=== PATIENT | female | born 1940 | race Caucasian/White ===

== ENCOUNTER 2016-10-19 12:32 | Inpatient (IN) | payer MEDICARE ==
[~2016-10-19] VITALS: Ht 165.1 cm; Wt 87.6 kg
[~2016-10-19 12:32] MED LIST: AMLO5TAB2 PO; INSU100V8 SQ; LOSA1TAB16 PO; METF500T25 PO; METO1TAB8 PO
[2016-10-19] MEDS ORDERED: IV NORMAL SALINE 1000ML BAG 1,000 ML IV SCH (13:06)
--- NOTE | 2016-10-19 13:09 | RAD ---
Head CT without contrast History:Code stroke, left-sided weakness Technique: Noncontrast CT imaging was acquired of the head. RS Compliance Statement: One or more of the following individualized dose reduction techniques were utilized for this examination: 1. Automated exposure control 2. Adjustment of the mA and/or kV according to patient size 3. Use of iterative reconstruction technique Comparison: None Findings: The ventricles, sulci, and cisterns are within normal limits in size and configuration. There is no significant mass-effect, midline shift, or abnormal extra-axial fluid collection. There is no evidence of acute parenchymal or extraaxial hemorrhage. The visualized paranasal sinuses and mastoid air cells are aerated. No significant osseous abnormality is identified. There is a focus of relative lower density of the right thalamus. Impression: There is no evidence of acute intracranial hemorrhage. There is a focus of somewhat lower density of the right thalamus, more recent ischemia not excluded. CT or MRI follow-up may be beneficial if concern for acute ischemia. Results were called to Dr. Epps 10/19/2016 at 1304.
[2016-10-19] MEDS ORDERED: ASPIRIN ENTERIC COATED 325 MG TABLET.DR. PO ONE (13:15)
[2016-10-19 13:16] LABS: BASO # 0.1 x10^3/uL (0.0-0.2); BASO % 1 % (0-3); EOS % 2 % (0-3); HEMATOCRIT 35.3 % (36.0-47.0); HEMOGLOBIN 11.2 g/dL (12.0-15.5); LYMPH # 1.8 x10^3/uL (1.0-4.8); LYMPH % 27 % (24-48); MEAN CORPUSCULAR HEMOGLOBIN 25 pg (25-35); MEAN CORPUSCULAR HGB CONC 32 g/dL (31-37); MEAN CORPUSCULAR VOLUME 81 fL (79-100); MONO % 12 % (0-9); NEUT % 58 % (31-73); PLATELET COUNT 217 x10^3/uL (140-400); RED BLOOD COUNT 4.39 x10^6/uL (3.50-5.40); RED CELL DISTRIBUTION WIDTH 14.8 % (11.5-14.5); WHITE BLOOD COUNT 6.7 x10^3/uL (4.0-11.0)
[2016-10-19 13:26] LABS: POTASSIUM ISTAT 3.9 mmol/L (3.5-5.0)
[2016-10-19 13:27] LABS: CALCIUM 9.2 mg/dL (8.5-10.1); CREATININE 0.9 mg/dL (0.6-1.0); GFR 61.2; POTASSIUM 3.9 mmol/L (3.5-5.1)
--- NOTE | 2016-10-19 13:28 | RAD ---
Single view chest History:Weakness An AP view of the chest is submitted. Comparison: 08/28/2012. Findings: There is no significant infiltrate, pleural effusion, or pneumothorax. The pericardial cardiac silhouette is within normal limits in size. There again has been a median sternotomy. Impression: No acute radiographic abnormality is identified.
[2016-10-19 13:33] LABS: ALBUMIN 3.5 g/dL (3.4-5.0); PROTHROMBIN TIME PATIENT 12.4 SEC (11.7-14.0); TOTAL BILIRUBIN 0.3 mg/dL (0.2-1.0); TOTAL PROTEIN 6.9 g/dL (6.4-8.2)
--- NOTE | 2016-10-19 13:39 | PHYS DOC ---
Past Medical History Past Medical History: Heart Disease, Hypertension Past Surgical History: Coronary Bypass Surgery Alcohol Use: None Drug Use: None Adult General Chief Complaint Chief Complaint: NEURO SYMPTOMS/DEFICITS HPI HPI Patient is a 76 year old female who presents with complaint of left-sided weakness and slurring of speech. Patient was brought to the emergency department by her . Both patient and state that the patient was complaining of double vision last night before bedtime. The patient awoke with both double vision and difficulty with keeping her balance earlier this morning. The patient stated that she wanted to visit her brother who is currently in a half-way which is why she didn't come in immediately. The patient's states that he noticed her symptoms were worsening at approximately 11:30 today with worsening slurring of speech and left-sided weakness. He brought the patient to the emergency department for evaluation. Patient denies any pain currently. Patient does admit to left-sided weakness. Patient denies any history of stroke. Patient has history of coronary artery disease and hypertension and is status post cardiac bypass surgery. Review of Systems Review of Systems Constitutional: Denies fever or chills [] Eyes: Denies change in visual acuity, redness, or eye pain [] HENT: Denies nasal congestion or sore throat [] Respiratory: Denies cough or shortness of breath [] Cardiovascular: Denies chest pain or edema [] GI: Denies abdominal pain, nausea, vomiting, bloody stools or diarrhea [] : Denies dysuria or hematuria [] Musculoskeletal: Denies back pain or joint pain [] Integument: Denies rash or skin lesions [] Neurologic: Slurred speech, double vision, left-sided weakness [] Current Medications Current Medications Current Medications Medications (Trade) Dose Ordered Sig/Burke Start Time Stop Time Status Last Admin Dose Admin Aspirin (Ecotrin) 325 mg 1X ONCE 10/19/16 13:15 10/19/16 13:16 DC Sodium Chloride (Iv Sodium Chloride 0.9% 1000ml Bag) 1,000 ml @ 1,000 mls/hr Q1H 10/19/16 13:06 10/19/16 14:05 Allergies Allergies Allergies Coded Allergies Type Severity Reaction Last Updated Verified No Known Drug Allergies 01/07/14 No Physical Exam Physical Exam Constitutional: Alert, afebrile, no acute distress. [] HENT: Normocephalic, atraumatic, bilateral external ears normal, oropharynx moist, no oral exudates, nose normal. [] Eyes: PERRLA, EOMI, conjunctiva normal, no discharge. [] Neck: Normal range of motion, no tenderness, supple, no stridor. [] Cardiovascular:Heart rate regular rhythm, no murmur [] Lungs & Thorax: Bilateral breath sounds clear to auscultation [] Abdomen: Bowel sounds normal, soft, no tenderness, no masses, no pulsatile masses. [] Skin: Warm, dry, no erythema, no rash. [] Back: No tenderness, no CVA tenderness. [] Extremities: No tenderness, no cyanosis, no clubbing, ROM intact, no edema. [] Neurologic: Alert and oriented X 3, left-sided facial droop, 4 out of 5 strength in the left upper and lower extremity, abnormal finger to nose test, positive pronator drift in left upper extremity. [] Current Patient Data Vital Signs Vital Signs Date Time Temp Pulse Resp B/P Pulse Ox O2 Delivery O2 Flow Rate FiO2 10/19/16 12:55 97.7 78 24 128/61 94 Room Air 97.7 Lab Values Laboratory Tests Test 10/19/16 13:00 10/19/16 13:07 White Blood Count 6.7x10^3/uL (4.0-11.0) Red Blood Count 4.39x10^6/uL (3.50-5.40) Hemoglobin 11.2g/dL (12.0-15.5) L Hematocrit 35.3% (36.0-47.0) L Mean Corpuscular Volume 81fL (79-100) Mean Corpuscular Hemoglobin 25pg (25-35) Mean Corpuscular Hemoglobin Concent 32g/dL (31-37) Red Cell Distribution Width 14.8% (11.5-14.5) H Platelet Count 217x10^3/uL (140-400) Neutrophils (%) (Auto) 58% (31-73) Lymphocytes (%) (Auto) 27% (24-48) Monocytes (%) (Auto) 12% (0-9) H Eosinophils (%) (Auto) 2% (0-3) Basophils (%) (Auto) 1% (0-3) Neutrophils # (Auto) 3.9x10^3uL (1.8-7.7) Lymphocytes # (Auto) 1.8x10^3/uL (1.0-4.8) Monocytes # (Auto) 0.8x10^3/uL (0.0-1.1) Eosinophils # (Auto) 0.1x10^3/uL (0.0-0.7) Basophils # (Auto) 0.1x10^3/uL (0.0-0.2) Prothrombin Time 12.4SEC (11.7-14.0) Prothrombin Time INR 1.0 (0.8-1.1) PTT 24SEC (24-38) Sodium Level 142mmol/L (136-145) Potassium Level 3.9mmol/L (3.5-5.1) Chloride Level 105mmol/L (98-107) Carbon Dioxide Level 30mmol/L (21-32) Anion Gap 7 (6-14) 16mmol/L (6-14) H Blood Urea Nitrogen 14mg/dL (7-20) Creatinine 0.9mg/dL (0.6-1.0) Estimated GFR (Cockcroft-Gault) 61.2 BUN/Creatinine Ratio 16 (6-20) Glucose Level 143mg/dL (70-99) H 140mg/dL (70-99) H Calcium Level 9.2mg/dL (8.5-10.1) Total Bilirubin 0.3mg/dL (0.2-1.0) Aspartate Amino Transferase (AST) 14U/L (15-37) L Alanine Aminotransferase (ALT) 19U/L (14-59) Alkaline Phosphatase 66U/L (46-116) Troponin I Quantitative < 0.017ng/mL (0.000-0.055) Total Protein 6.9g/dL (6.4-8.2) Albumin 3.5g/dL (3.4-5.0) Albumin/Globulin Ratio 1.0 (1.0-1.7) POC Hemoglobin 11.9g/dL (12-15) L POC Hematocrit 35% (36-40) L POC Sodium 140mmol/L (135-145) POC Potassium 3.9mmol/L (3.5-5.0) POC Chloride 101mmol/L (98-110) POC Total CO2 27mmol/L (23-32) POC Blood Urea Nitrogen 13mg/dL (8-26) POC Creatinine 0.8mg/dL (0.5-1.4) POC Ionized Calcium (Greg) 1.19mmol/L (1.13-1.32) POC Troponin I 0.00ng/ml (<0.08) Laboratory Tests 10/19/16 13:00 Laboratory Tests 10/19/16 13:00 10/19/16 13:07 EKG EKG Interpreted by me: Heart rate 78, sinus rhythm, normal intervals, normal axis, no acute ST/T-wave abnormalities present [] Radiology/Procedures Radiology/Procedures [address] [id number] IMAGING REPORT Signed PATIENT: DENZEL ARTIS ACCOUNT: [id number] : 1940 LOCATION: ER AGE: 76 SEX: F EXAM STATUS: PRE ER ORD. PHYSICIAN: HOSSEIN EPPS MD REASON: weakness, rule out acute cardiopulmonary abnormality PROCEDURE: CHEST AP ONLY Single view chest History:Weakness An AP view of the chest is submitted. Comparison: 08/28/2012. Findings: There is no significant infiltrate, pleural effusion, or pneumothorax. The pericardial cardiac silhouette is within normal limits in size. There again has been a median sternotomy. Impression: No acute radiographic abnormality is identified. DICTATED and SIGNED BY: ZANA SMITH MD DATE: 10/19/16 1325 CC: WILBUR PATEL; HOSSEIN EPPS MD ~ [address] [id number] IMAGING REPORT Signed PATIENT: DENZEL ARTIS ACCOUNT: [id number] : 1940 LOCATION: ER AGE: 76 SEX: F EXAM STATUS: PRE ER ORD. PHYSICIAN: HOSSEIN EPPS MD REASON: code stroke PROCEDURE: HEAD WO CONTRAST Head CT without contrast History:Code stroke, left-sided weakness Technique: Noncontrast CT imaging was acquired of the head. PQRS Compliance Statement: One or more of the following individualized dose reduction techniques were utilized for this examination: 1. Automated exposure control 2. Adjustment of the mA and/or kV according to patient size 3. Use of iterative reconstruction technique Comparison: None Findings: The ventricles, sulci, and cisterns are within normal limits in size and configuration. There is no significant mass-effect, midline shift, or abnormal extra-axial fluid collection. There is no evidence of acute parenchymal or extraaxial hemorrhage. The visualized paranasal sinuses and mastoid air cells are aerated. No significant osseous abnormality is identified. There is a focus of relative lower density of the right thalamus. Impression: There is no evidence of acute intracranial hemorrhage. There is a focus of somewhat lower density of the right thalamus, more recent ischemia not excluded. CT or MRI follow-up may be beneficial if concern for acute ischemia. Results were called to Dr. Epps 10/19/2016 at 1304. DICTATED and SIGNED BY: ZANA SMITH MD DATE: 10/19/16 1300 CC: WILBUR PATEL; HOSSEIN EPPS MD ~ [] Course & Med Decision Making Course & Med Decision Making Pertinent Labs and Imaging studies reviewed. (See chart for details) The patient's CT head shows a possible subacute area of stroke in the right thalmus as reported by the radiologist. The patient is out of the window for TPA administration as the patient's symptoms started last night with double vision. I consult that Dr. Canela of neurology who agreed with the assessment and agreed with plan for supportive care at this time. The patient will be admitted to the hospital for further treatment. I spoke with Dr. Lora who is on-call for Dr. Patel and he accepted care of patient in hospital. Dragon Disclaimer Dragon Disclaimer This electronic medical record was generated, in whole or in part, using a voice recognition dictation system. Departure Departure Impression: Primary Impression: CVA (cerebral vascular accident) Disposition: 01 HOME, SELF-CARE Admitting Physician: Angel Lora Condition: GUARDED Referrals: WILBUR PATEL (PCP) Problem Qualifiers Primary Impression: CVA (cerebral vascular accident) CVA mechanism: unspecified Qualified Code: I63.9 - Cerebral infarction, unspecified HOSSEIN EPPS MD Oct 19, 2016 13:39
[2016-10-19 14:02] LABS: BILIRUBIN,URINE NEGATIVE (NEG); GLUCOSE,URINE NEGATIVE (NEG); NITRITE,URINE NEGATIVE (NEG); PH,URINE 5.5; PROTEIN,URINE NEGATIVE (NEG-TRACE); UROBILINOGEN,URINE 0.2 mg/dL (0.2 mg/dL)
--- NOTE | 2016-10-19 14:04 | PDOC ---
Provider Note Provider Note Patient seen. History and Physical dictated. See dictation #[id number] VERONIKA TAI MD Oct 19, 2016 14:04
[2016-10-19] MEDS ORDERED: ACETAMINOPHEN 325 MG TABLET. PO PRN (14:15)
[2016-10-19 14:21] LABS: BACTERIA,URINE 0 /HPF (0-FEW); RBC,URINE 0 /HPF (0-2); SQUAMOUS EPITHELIAL CELL,UR FEW /LPF; WBC,URINE 0 /HPF (0-4)
--- NOTE | 2016-10-19 16:01 | ACF ---
Admission Forms Criteria TRAUMATIC BRAIN INJURY, NONSURGICAL TREATMENT Clinical Indications for Admission to Inpatient Care (Place 'X' for any and all applicable criteria): Admission is indicated for head injury and ANY ONE of the following(1)(2)(3)(4)( 5)(6)(7): [ ]I. Postresuscitation or presenting [place] coma scale (GCS) score of less than 13 [ ]II. New focal signs on neurologic examination [ ]III. Persistently diminished level of consciousness (eg, lethargy, disorientation) [ ]IV. Penetrating wounds [ ]V. Evidence of increased ICP (eg, papilledema, persistent vomiting) [ ]. CSF leak(7)(8) [ ]VII. Significant extracranial injuries [X]VIII. Intracranial pathology on CT scan(6) [ ]IX. Inpatient admission required rather than observation care (Use Traumatic Brain Injury, Nonsurgical Treatment: Observation Care Criteria as appropriate) because of ANY ONE of the following: [ ]a) Intracranial infection identified(8) [ ]b) Cerebral vasospasm identified or suspected [ ]c) Recurrent seizures(9) [ ]d) Surgical intervention or complex wound care required(7)(10) [ ]e) Hemodynamic instability [ ]f) Hypertension requiring inpatient treatment [ ]g) Continuous IV infusion of anticoagulant, platelet inhibitor, vasoactive, or antiarrhythmic Medication(11)(12) [ ]h) Cerebral bleeding, hydrocephalus, or vasospasm monitoring (13) [ ]i ) Other condition, treatment or monitoring requiring inpatient admission Extended stay beyond goal length of stay may be needed for(23)(24) [ ]a) Severe injury [ ]b) Ventilatory failure [ ]c) Intracranial infection [ ]d) Increased ICP [ ]e) Cerebral vasospasm [ ]f) New-onset seizures [ ]g) Severe neurologic deficits [ ]h) Surgical intervention The original [employer] content created by [employer] has been revised. The portions of the content which have been revised are identified through the use of italic text or in bold, and [employer] has neither reviewed nor approved the modified material. All other unmodified content is copyright [employer]. Please see references footnoted in the original [employer] edition 2016 Admission Criteria Met?: Yes BONNIE RAZO Oct 19, 2016 16:01
[2016-10-19] MEDS ORDERED: FLUT100D IH (18:05)
[2016-10-19] MEDS ORDERED: LORA10TA3 PO (18:05)
[2016-10-19] MEDS ORDERED: NITR0.4T6 SL (18:05)
[2016-10-19] MEDS ORDERED: FLUT9.9S NS (18:05)
[2016-10-19] MEDS ORDERED: ASPI81TA2 PO (18:05)
[2016-10-19] MEDS ORDERED: METO1TAB32 PO (18:05)
[2016-10-19] MEDS ORDERED: PRAV40TA2 PO (18:05)
[2016-10-19] MEDS ORDERED: VERA180C2 PO (18:05)
[2016-10-19] MEDS ORDERED: LOSA1TAB16 PO (18:05)
[2016-10-19] MEDS ORDERED: ALBU0.63 NEB (18:05)
[2016-10-19] MEDS ORDERED: NITROGLYCERIN SUBLINGUAL 0.4 MG BOTTLE OF 25. SL PRN (18:15)
--- NOTE | 2016-10-19 18:57 | EKG ---
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
[2016-10-19 19:00] VITALS: BP 149/56
--- NOTE | 2016-10-19 19:54 | PDOC2 ---
NEUROLOGY CONSULT Date of Admission Date of Admission DATE: 10/19/16 TIME: 19:44 Reason for Consult Reason for Consult: Stroke Referring Physician Referring Physician: Dr. Lora PCP: Dr. Gannon Source Source: Caregiver, Chart review, Patient History of Present Illness History of Present Illness The patient is a 76-year-old right-handed female who has been having diplopia as long as several months. Yesterday she felt weak and this morning she had left sided weakness. Because of the unknown onset of symptoms, we decided to not give her tissue plasminogen activator. Patient denies any prior history of stroke, seizure, or head injury. Past Medical History Cardiovascular: CAD, HTN, Hyperlipidemia Pulmonary: COPD, Other (sleep apnea) GI: GERD Musculoskeletal: Osteoarthritis (left hip) Past Surgical History Past Surgical History: CABG, Cataract Removal, Hysterectomy Family History Family History: CAD Social History Social History , smokes tobacco, occasional alcohol use Current Medications Current Medications Current Medications Sodium Chloride (Iv Sodium Chloride 0.9% 1000ml Bag) 1,000 ml @ 1,000 mls/hr Q1H IV Last administered on 10/19/16 13:40; Start 10/19/16 at 13:06; Stop 07/25 at 14:05; Status DC Aspirin (Ecotrin) 325 mg 1X ONCE PO Last administered on 10/19/16 13:40; Start 10/19/16 at 13:15; Stop 10/19/16 at 13:16; Status DC Acetaminophen (Tylenol) 650 mg PRN Q6HRS PRN PO MILD PAIN / TEMP; Start at 14:15 Nitroglycerin (Nitrostat) 0.4 mg PRN Q5MIN PRN SL CHEST PAIN; Start 10/19/16 at 18:15 Non-Formulary Medication 1 vial TID NEB ; Start 10/19/16 at 21:00; Stop at 21:00; Status DC Fluticasone Propionate (Flonase) 2 spray DAILY NS ; Start 10/20/16 at 09:00 Non-Formulary Medication 1 puff BID IH ; Start 10/19/16 at 21:00; Stop 10/19/16 at 21:00; Status DC Cetirizine HCl (Zyrtec) 10 mg DAILY PO ; Start 10/20/16 at 09:00 Losartan Potassium (Cozaar) 50 mg DAILY PO ; Start 10/20/16 at 09:00 Atorvastatin Calcium (Lipitor) 10 mg QHS PO ; Start 10/19/16 at 21:00 Verapamil HCl (Calan Sr) 180 mg DAILY PO ; Start 10/20/16 at 09:00 Hydrochlorothiazide (Microzide) 12.5 mg DAILY PO ; Start 10/20/16 at 09:00 Budesonide (Pulmicort) 0.5 mg RTBID NEB ; Start 10/19/16 at 20:00 Albuterol Sulfate (Ventolin Neb Soln) 2.5 mg TID NEB ; Start 10/19/16 at 21:00 Active Scripts Active Reported NITROGLYCERIN SubLingual (Nitroglycerin) 0.4 Mg Tab.subl 0.4 Mg SL PRN Q5MIN PRN Aspirin 81 Mg Tab.chew 1 Tab PO DAILY Flonase Allergy Relief (Fluticasone Propionate) 9.9 Ml Saffell.susp 2 Sprays NS DAILY Losartan-Hctz 50-12.5 Mg Tab (Losartan/Hydrochlorothiazide) 1 Each Tablet 1 Tab PO DAILY Metoprolol ER-Hctz 50-12.5 mg (Metoprolol Succinate/Hctz) 1 Each Tab.er.24h 1 Each PO Pravastatin Sodium 40 Mg Tablet 1 Tab PO QHS Verapamil Er (Verapamil Hcl) 180 Mg Cap24h.pel 180 Mg PO DAILY Albuterol Sulfate Neb Soln (Albuterol Sulfate) 0.63 Mg/3 Ml Vial.neb 1 Vial NEB TID Flovent 100MCG Diskus (Fluticasone Propionate) 100 Mcg Disk.w.dev 1 Puff IH BID Loratadine 10 Mg Tablet 1 Tab PO DAILY Allergies Allergies: Coded Allergies: No Known Drug Allergies (Unverified , 01/07/14) ROS Review of System Patient denies fevers, chills, weight loss, dyspnea, angina, abdominal pain, change in bowels, or dysuria. 14 point review of systems is negative. Physical Exam Physical Examination PHYSICAL EXAMINATION: Vital signs: see above. General appearance is normal and in no acute distress. HEENT: Normocephalic and nontraumatic. Eyes, nose, ears, and throat are unremarkable. Neck is supple. No lymphadenopathy. No bruits are heard over the carotid artery. No crepitus. NEUROLOGICAL EXAMINATION: Mental Status Examination: Alert. Oriented to time, place, and person. Answers questions and follows commends. Pupils are equal round and reactive to light and accommodation. Extraocular movements testing reveals horizontal gaze palsy of the right eye. Visual field exam shows no defect on the direct confrontation. No motor or sensory deficits on the facial exam. Uvula in the midline and the soft palate elevated symmetrically. No deviation of the tongue to any direction. Gross hearing is normal. Shoulder shrug normal. Muscle tone is normal. Muscle strength is 4/5 on the left, 5/5 on the right. Deep tendon reflexes are 2+ all around. Plantar reflex is with flexion response bilaterally. Kjjvgv-gs-tayj test performance is accurate. Alternative movements are accurate. Gait not tested. Sensory exam shows no deficits. No cerebellar signs are elicited. Vitals VITALS Vital Signs Date Time Temp Pulse Resp B/P Pulse Ox O2 Delivery O2 Flow Rate FiO2 10/19/16 17:09 Room Air 10/19/16 14:02 68 139/65 94 10/19/16 12:55 97.7 24 97.7 Labs Labs Laboratory Tests Test 10/19/16 13:00 10/19/16 13:07 10/19/16 13:45 White Blood Count 6.7x10^3/uL (4.0-11.0) Red Blood Count 4.39x10^6/uL (3.50-5.40) Hemoglobin 11.2g/dL (12.0-15.5) Hematocrit 35.3% (36.0-47.0) Mean Corpuscular Volume 81fL (79-100) Mean Corpuscular Hemoglobin 25pg (25-35) Mean Corpuscular Hemoglobin Concent 32g/dL (31-37) Red Cell Distribution Width 14.8% (11.5-14.5) Platelet Count 217x10^3/uL (140-400) Neutrophils (%) (Auto) 58% (31-73) Lymphocytes (%) (Auto) 27% (24-48) Monocytes (%) (Auto) 12% (0-9) Eosinophils (%) (Auto) 2% (0-3) Basophils (%) (Auto) 1% (0-3) Neutrophils # (Auto) 3.9x10^3uL (1.8-7.7) Lymphocytes # (Auto) 1.8x10^3/uL (1.0-4.8) Monocytes # (Auto) 0.8x10^3/uL (0.0-1.1) Eosinophils # (Auto) 0.1x10^3/uL (0.0-0.7) Basophils # (Auto) 0.1x10^3/uL (0.0-0.2) Prothrombin Time 12.4SEC (11.7-14.0) Prothromb Time International Ratio 1.0 (0.8-1.1) Activated Partial Thromboplast Time 24SEC (24-38) Sodium Level 142mmol/L (136-145) Potassium Level 3.9mmol/L (3.5-5.1) Chloride Level 105mmol/L (98-107) Carbon Dioxide Level 30mmol/L (21-32) Anion Gap 7 (6-14) 16mmol/L (6-14) Blood Urea Nitrogen 14mg/dL (7-20) Creatinine 0.9mg/dL (0.6-1.0) Estimated GFR (Cockcroft-Gault) 61.2 BUN/Creatinine Ratio 16 (6-20) Glucose Level 143mg/dL (70-99) 140mg/dL (70-99) Calcium Level 9.2mg/dL (8.5-10.1) Total Bilirubin 0.3mg/dL (0.2-1.0) Aspartate Amino Transf (AST/SGOT) 14U/L (15-37) Alanine Aminotransferase (ALT/SGPT) 19U/L (14-59) Alkaline Phosphatase 66U/L (46-116) Troponin I Quantitative < 0.017ng/mL (0.000-0.055) Total Protein 6.9g/dL (6.4-8.2) Albumin 3.5g/dL (3.4-5.0) Albumin/Globulin Ratio 1.0 (1.0-1.7) Bedside Hemoglobin 11.9g/dL (12-15) Bedside Hematocrit 35% (36-40) Bedside Sodium 140mmol/L (135-145) Bedside Potassium 3.9mmol/L (3.5-5.0) Bedside Chloride 101mmol/L (98-110) Bedside Total CO2 27mmol/L (23-32) Bedside Blood Urea Nitrogen 13mg/dL (8-26) Bedside Creatinine 0.8mg/dL (0.5-1.4) Bedside Ionized Calcium (Greg) 1.19mmol/L (1.13-1.32) Bedside Troponin I 0.00ng/ml (<0.08) Urine Collection Type U cath Urine Color Yellow Urine Clarity Clear Urine pH 5.5 Urine Specific [place] 1.010 Urine Protein Negativemg/dL (NEG-TRACE) Urine Glucose (UA) Negativemg/dL (NEG) Urine Ketones (Stick) Negativemg/dL (NEG) Urine Blood Negative (NEG) Urine Nitrite Negative (NEG) Urine Bilirubin Negative (NEG) Urine Urobilinogen Dipstick 0.2mg/dL (0.2 mg/dL) Urine Leukocyte Esterase Negative (NEG) Urine RBC 0/HPF (0-2) Urine WBC 0/HPF (0-4) Urine Squamous Epithelial Cells Few/LPF Urine Bacteria 0/HPF (0-FEW) Urine Mucus Mod/LPF Laboratory Tests Test 10/19/16 13:00 10/19/16 13:07 10/19/16 13:45 White Blood Count 6.7x10^3/uL (4.0-11.0) Red Blood Count 4.39x10^6/uL (3.50-5.40) Hemoglobin 11.2g/dL (12.0-15.5) Hematocrit 35.3% (36.0-47.0) Mean Corpuscular Volume 81fL (79-100) Mean Corpuscular Hemoglobin 25pg (25-35) Mean Corpuscular Hemoglobin Concent 32g/dL (31-37) Red Cell Distribution Width 14.8% (11.5-14.5) Platelet Count 217x10^3/uL (140-400) Neutrophils (%) (Auto) 58% (31-73) Lymphocytes (%) (Auto) 27% (24-48) Monocytes (%) (Auto) 12% (0-9) Eosinophils (%) (Auto) 2% (0-3) Basophils (%) (Auto) 1% (0-3) Neutrophils # (Auto) 3.9x10^3uL (1.8-7.7) Lymphocytes # (Auto) 1.8x10^3/uL (1.0-4.8) Monocytes # (Auto) 0.8x10^3/uL (0.0-1.1) Eosinophils # (Auto) 0.1x10^3/uL (0.0-0.7) Basophils # (Auto) 0.1x10^3/uL (0.0-0.2) Prothrombin Time 12.4SEC (11.7-14.0) Prothromb Time International Ratio 1.0 (0.8-1.1) Activated Partial Thromboplast Time 24SEC (24-38) Sodium Level 142mmol/L (136-145) Potassium Level 3.9mmol/L (3.5-5.1) Chloride Level 105mmol/L (98-107) Carbon Dioxide Level 30mmol/L (21-32) Anion Gap 7 (6-14) 16mmol/L (6-14) Blood Urea Nitrogen 14mg/dL (7-20) Creatinine 0.9mg/dL (0.6-1.0) Estimated GFR (Cockcroft-Gault) 61.2 BUN/Creatinine Ratio 16 (6-20) Glucose Level 143mg/dL (70-99) 140mg/dL (70-99) Calcium Level 9.2mg/dL (8.5-10.1) Total Bilirubin 0.3mg/dL (0.2-1.0) Aspartate Amino Transf (AST/SGOT) 14U/L (15-37) Alanine Aminotransferase (ALT/SGPT) 19U/L (14-59) Alkaline Phosphatase 66U/L (46-116) Troponin I Quantitative < 0.017ng/mL (0.000-0.055) Total Protein 6.9g/dL (6.4-8.2) Albumin 3.5g/dL (3.4-5.0) Albumin/Globulin Ratio 1.0 (1.0-1.7) Bedside Hemoglobin 11.9g/dL (12-15) Bedside Hematocrit 35% (36-40) Bedside Sodium 140mmol/L (135-145) Bedside Potassium 3.9mmol/L (3.5-5.0) Bedside Chloride 101mmol/L (98-110) Bedside Total CO2 27mmol/L (23-32) Bedside Blood Urea Nitrogen 13mg/dL (8-26) Bedside Creatinine 0.8mg/dL (0.5-1.4) Bedside Ionized Calcium (Greg) 1.19mmol/L (1.13-1.32) Bedside Troponin I 0.00ng/ml (<0.08) Urine Collection Type U cath Urine Color Yellow Urine Clarity Clear Urine pH 5.5 Urine Specific [place] 1.010 Urine Protein Negativemg/dL (NEG-TRACE) Urine Glucose (UA) Negativemg/dL (NEG) Urine Ketones (Stick) Negativemg/dL (NEG) Urine Blood Negative (NEG) Urine Nitrite Negative (NEG) Urine Bilirubin Negative (NEG) Urine Urobilinogen Dipstick 0.2mg/dL (0.2 mg/dL) Urine Leukocyte Esterase Negative (NEG) Urine RBC 0/HPF (0-2) Urine WBC 0/HPF (0-4) Urine Squamous Epithelial Cells Few/LPF Urine Bacteria 0/HPF (0-FEW) Urine Mucus Mod/LPF Images Images Head CT: There is no evidence of acute intracranial hemorrhage. There is a focus of somewhat lower density of the right thalamus, more recent ischemia not excluded. CT or MRI follow-up may be beneficial if concern for acute ischemia. Assessment/Plan Assessment/Plan Impression: Right hemispheric stroke, but the right eye gaze palsy may invoke a brainstem stroke. She is a failure on aspirin. Recommendations: Switch from aspirin to Plavix Echocardiogram Carotid Dopplers MRI Continue statin Rehabilitation modalities. Thank you for letting me help with the patient's care. SUE HERNANDEZ MD Oct 19, 2016 19:54
[2016-10-19] MEDS: ATORVASTATIN CALCIUM 10 MG TABLET. PO SCH (20:50)
[2016-10-19] MEDS ORDERED: NON FORMULARY ITEM (Albuterol Sulfate (Albuterol Sulfate Neb Soln) 1 VIAL) NEB SCH (21:00)
[2016-10-19] MEDS ORDERED: NON FORMULARY ITEM (Fluticasone Propionate (Flovent 100MCG Diskus) 1 PUFF) IH SCH (21:00)
[2016-10-19] MEDS: BUDESONIDE 0.5 MG/2 ML NEBU NEB SCH (22:12)
[2016-10-19] MEDS: ALBUTEROL SULFATE 2.5 MG/3 ML NEBU. NEB SCH (22:12)
[2016-10-19 23:00] VITALS: BP 140/58
[2016-10-20 03:00] VITALS: BP 138/61
[2016-10-20 05:32] LABS: BASO # 0.1 x10^3/uL (0.0-0.2); BASO % 1 % (0-3); EOS % 2 % (0-3); HEMATOCRIT 32.4 % (36.0-47.0); HEMOGLOBIN 10.3 g/dL (12.0-15.5); LYMPH # 1.9 x10^3/uL (1.0-4.8); LYMPH % 30 % (24-48); MEAN CORPUSCULAR HEMOGLOBIN 26 pg (25-35); MEAN CORPUSCULAR HGB CONC 32 g/dL (31-37); MEAN CORPUSCULAR VOLUME 81 fL (79-100); MONO % 12 % (0-9); NEUT % 55 % (31-73); PLATELET COUNT 198 x10^3/uL (140-400); RED CELL DISTRIBUTION WIDTH 14.7 % (11.5-14.5); WHITE BLOOD COUNT 6.4 x10^3/uL (4.0-11.0)
[2016-10-20 06:02] LABS: ALBUMIN 3.1 g/dL (3.4-5.0); ALBUMIN/GLOBULIN RATIO 1.1 (1.0-1.7); CALCIUM 8.7 mg/dL (8.5-10.1); GFR 54.2; MAGNESIUM 1.9 mg/dL (1.8-2.4); POTASSIUM 4.1 mmol/L (3.5-5.1); TOTAL BILIRUBIN 0.2 mg/dL (0.2-1.0); TOTAL PROTEIN 5.9 g/dL (6.4-8.2)
[2016-10-20] MEDS: BUDESONIDE 0.5 MG/2 ML NEBU NEB SCH ×2 (06:05→18:07)
[2016-10-20] MEDS: ALBUTEROL SULFATE 2.5 MG/3 ML NEBU. NEB SCH ×3 (06:05→18:07)
[2016-10-20 06:12] LABS: CHOLESTEROL/HDL RATIO 2.9
--- NOTE | 2016-10-20 06:27 | HP ---
ADMIT DATE: 10/19/2016 ADMITTING PHYSICIAN: Dr. French. HISTORY OF PRESENT ILLNESS: This 76-year-old female started having blurred vision last night. She continued to get worse this morning and because of that she came to the Emergency Room. In the Emergency Room, the patient was noted to have flaccid paralysis of the left upper and lower extremity, but by the time she went to the CAT scan and came back, she had started moving her both left upper and lower extremities. She complains of dizziness. She states that she has had dizziness on and off for the last 3 months, but was getting better. She denies any headaches, nausea, vomiting, chest pains, palpitations, dyspnea, abdominal pain, dysuria, constipation, diarrhea, heartburn, or any other new issues. In the Emergency Room, the patient was noted to have left-sided weakness, blurred vision, and acute cerebrovascular accident, and the patient was admitted for further evaluation and management. CT scan of head showed decreased density in the thalamus area. REVIEW OF SYSTEMS: As noted in the history of present illness. PAST MEDICAL HISTORY: The patient has history of hypertension, coronary artery disease. PAST SURGICAL HISTORY: The patient had leg surgery in 2011. She had coronary artery disease and had CABG x 4 in 2002. SOCIAL HISTORY: The patient smokes 1 pack per day for 50 years. No history of alcoholism or drug abuse. She is . FAMILY HISTORY: Positive for coronary artery disease, diabetes, and hypertension. There is also history of cancer in the family. ALLERGIES: None known any. MEDICATIONS: The patient is not sure what medication she takes. She was just given aspirin in the Emergency Room. PHYSICAL EXAMINATION: VITAL SIGNS: Temperature 97.7, pulse 78 per minute, respirations 24 per minute, blood pressure 128/61 mmHg. GENERAL: The patient is alert, oriented, and not in any acute distress. The patient is an elderly female. EYES: Pupils reacting to light. Conjunctivae pale. Sclerae muddy. HEENT: Unremarkable except for blurred vision and difficulty in seeing. SKIN: Warm and dry. There is no cyanosis. NECK: Supple. JVP normal. No thyromegaly. No carotid bruit. LUNGS: Clear. CARDIOVASCULAR: S1, S2 regular. ABDOMEN: Soft, nontender, no guarding, no rigidity. Bowel sounds present. EXTREMITIES: No edema. CENTRAL NERVOUS SYSTEM: The patient has blurred vision. She is alert and oriented. She has left-sided weakness of both upper and lower extremities; however, she is able to move. The power is 3/5 to 4/5. LABORATORY FINDINGS: INR is 1. Sodium 142, potassium 3.9, BUN 14, creatinine 0.9, glucose 143, AST 14. Troponin less than 0.017. WBC count 6.7, hemoglobin 11.2. Chest x-ray: No acute changes noted. CT scan of head: Focus of somewhat lower density of the right thalamus, more recent ischemia not excluded. IMPRESSION: 1. Acute cerebrovascular accident with left-sided weakness and blurring of vision. 2. Hypertension. 3. Coronary artery disease, status post coronary artery bypass graft x 4. 4. Chronic smoking. PLAN: Admit to [facility]. Consult Dr. Canela for Neurology evaluation and management. I have discussed the condition and treatment with the patient and her . She will need MRI and further workup. I will also have to get the list of her medications from our office records because her pharmacy is closed today. For details, please review the orders. VERONIKA TAI MD DR: DANNY/verito JOB#: [id number] / [id number] WILBUR Saldivar
[2016-10-20 07:00] VITALS: BP 142/56
--- NOTE | 2016-10-20 08:54 | RAD ---
Carotid Doppler ultrasound History: Dizziness, lightheadedness, stroke. Multiple grayscale and color sonographic images and spectral analysis waveform images were acquired of the carotid and vertebral arteries. Comparison: None Findings: Stenosis calculations for carotid ultrasound studies are derived from validated velocity criteria which are known to correlate with the NASCET methodology. Exam is incomplete as patient declined further imaging, left internal carotid artery not imaged. Reportedly the exam was also degraded by motion. There is tortuosity of the common carotid arteries bilaterally. There is moderate to severe plaque of the carotid bulbs bilaterally greater on the right extending into the proximal internal and external carotid artery origins. Vertebral arteries were not seen on this exam. Right: Proximal CCA PSV 156 cm/sec EDV 3 cm/sec Mid CCA PSV 110 cm/sec EDV 16 cm/sec Distal CCA PSV 74 cm/sec EDV 9 cm/sec Proximal ICA PSV 170 cm/sec EDV 27 cm/sec Mid ICA PSV 169 cm/sec EDV 29 cm/sec Distal ICA PSV 133 cm/sec EDV 27 cm/sec ECA PSV 87 cm/sec Vertebral not seen ICA/CCA ratio 1.5 Left: Proximal CCA PSV 130 cm/sec EDV 19 cm/sec Mid CCA PSV 125 cm/sec EDV 12 cm/sec Distal CCA PSV 159 cm/sec EDV 13 cm/sec External PSV 173 cm/sec Left internal carotid artery not imaged ECA PSV 13 cm/sec EDV cm/sec Vertebral not seen Impression: Exam is incomplete as patient declined further imaging, left internal carotid artery not evaluated. There is moderate to severe plaque of the carotid bulbs greater on the right with extent into the proximal internal and external carotid arteries. Velocity elevation of the visualized carotid bulbs is suggestive of moderate narrowing. Neither vertebral artery could be visualized.
[2016-10-20] MEDS: FLUTICASONE 50MCG/NASAL SPRAY 16GM BOTTLE. NS SCH (09:00)
[2016-10-20] MEDS: CETIRIZINE HCL 10 MG TABLET PO SCH (09:26)
[2016-10-20] MEDS: CLOPIDOGREL BISULFATE 75 MG TABLET PO SCH (09:26)
[2016-10-20] MEDS: HYDROCHLOROTHIAZIDE 12.5 MG CAPSULE. PO SCH (09:26)
[2016-10-20] MEDS: LOSARTAN POTASSIUM 50 MG TABLET. PO SCH (09:26)
[2016-10-20] MEDS: VERAPAMIL SR 180 MG TABLET.ER. PO SCH (09:27)
--- NOTE | 2016-10-20 09:59 | PDOC ---
Provider Note Provider Note Pt. seen and examined. Will obtain echo. No clear afib on monitor. Continue plavix. Known CAD appears stable. Full note to follow. Thanks for consult. STANISLAW ANGUIANO MD Oct 20, 2016 09:59
--- NOTE | 2016-10-20 10:27 | CONS ---
DATE OF CONSULTATION: 10/20/2016 REASON FOR CONSULTATION: Known coronary artery disease and recent CVA. HISTORY OF PRESENT ILLNESS: The patient is a pleasant 76-year-old woman with past medical history as noted below, who comes into the hospital in the setting of a CVA. She apparently was in her usual state of health and began to have left-sided symptoms and ultimately was admitted with stroke. Her initial diagnosis appears to be a right hemispheric stroke with left-sided impairment. Cardiology has been asked to comment to rule out any cardiovascular source of her CVA. The patient denies any specific cardiovascular limitations over the last several weeks to months. PAST MEDICAL HISTORY: 1. Coronary artery disease, status post 4-vessel bypass in 2002. 2. Hypertension. 3. Dyslipidemia. 4. COPD with nursing home tobacco abuse. FAMILY HISTORY: Noncontributory. SOCIAL HISTORY: The patient is and smokes tobacco with occasional alcohol use. ALLERGIES: No known drug allergies. CURRENT CARDIOVASCULAR MEDICATIONS: Hydrochlorothiazide 12.5 mg daily, Verapamil 180 mg daily, losartan 50 mg daily, Plavix 75 mg daily, atorvastatin 10 mg daily. REVIEW OF SYSTEMS: Negative for 10 out of 14 systems reviewed, unless otherwise mentioned above in HPI. PHYSICAL EXAMINATION: VITAL SIGNS: Afebrile, heart rate 84, respirations 18, blood pressure 142/56, 97% on room air. GENERAL: She is alert and oriented, in no acute distress. HEAD AND NECK: Unremarkable. HEART: Regular rate and rhythm without any murmurs, rubs or gallops. LUNGS: Clear to auscultation bilaterally. NEUROLOGIC: Left-sided weakness. MUSCULOSKELETAL: No trauma. DIAGNOSTIC STUDIES: Labs: Hemoglobin 10.3, platelets 198, creatinine 1.0, LDL 60, HDL 47. Carotid upper suggestive of significant [id number] disease of the bilateral carotid bulbs. IMPRESSION: 1. Right-sided hemispheric stroke. 2. Hypertension. 3. Dyslipidemia. 4. Coronary artery disease status post 4-vessel bypass surgery. RECOMMENDATIONS: 1. I agree with continuation of Plavix and we will obtain an echocardiogram to rule out any valvular source of her CVA. 2. Suspect that her CVA is most likely secondary to carotid arterial disease and would defer to Neurology and primary care for consideration of vascular surgery referral for further evaluation for carotid endarterectomy. 3. Coronary artery disease, stable at this time. No further cardiac testing necessary except for an echocardiogram. 4. Lipid profile obtained and she has excellent lipid control. I had a long discussion with the patient about smoking cessation. We will follow along peripherally. Thank you for this consultation. STANISLAW ANGUIANO MD DR: EDGARD/verito JOB#: [id number] / [id number] SHEILA
--- NOTE | 2016-10-20 12:22 | RAD ---
BRAIN W/O CONTRAST History:CVA, dizziness Technique: Multiplanar, multi sequential noncontrast MR imaging was performed of the brain. Comparison: CT head exam 10/19/2016, no previous MR brain exam available. Findings: There is some motion degradation. There is 1.2 cm focus of restricted diffusion of the right anterior thalamus corresponding with area of low-density on the CT exam. There is also some extent to the right midbrain. There is associated T2 and FLAIR hypertense signal abnormality. There is no midline shift or extra-axial fluid collection. Ventricular size is within normal limits. Cerebral volume can be considered within normal limits of the patient's age. There are a few other small infarcts of the left parietal lobe. Small focus of signal change right temporal lobe is probably due to site of old microhemorrhage. There is preservation of the major arterial intracranial flow voids at the skull base. Mastoid air cells are aerated. There has been lens surgery bilaterally. There is minimal patchy ethmoid air cell mucosal thickening. Cerebellar tonsils are normal in location. There is preserved marrow signal of the clivus. Impression: 1.Corresponding with CT findings, there is recent subacute infarct of the right thalamus extending to the right midbrain. 2. There are a few small old infarcts of the left parietal lobe. Critical results were called to patient's nurse Maria R 10/20/2016 at 12:18.
--- NOTE | 2016-10-20 13:41 | PDOC ---
IM PROGRESS NOTES- Subjective Subjective Feels better but still weak.still has blurring of vision. Objective Vitals Vital Signs Date Time Temp Pulse Resp B/P Pulse Ox O2 Delivery O2 Flow Rate FiO2 10/20/16 12:59 Room Air 10/20/16 09:27 84 142/56 10/20/16 07:00 97.7 18 97 97.7 10/20/16 06:09 2.0 Input & Output Intake and Output 10/20/16 07:00 Intake Total 1240 ml Balance 1240 ml Intake Oral 240 ml IV Total 1000 ml # Voids 5 Physical Exam Physical Exam GENERAL: The patient is alert, oriented, and not in any acute distress. The patient is an elderly female. EYES: Pupils reacting to light. Conjunctivae pale. Sclerae muddy. HEENT: Unremarkable except for blurred vision and difficulty in seeing. SKIN: Warm and dry. There is no cyanosis. NECK: Supple. JVP normal. No thyromegaly. No carotid bruit. LUNGS: Clear. CARDIOVASCULAR: S1, S2 regular. ABDOMEN: Soft, nontender, no guarding, no rigidity. Bowel sounds present. EXTREMITIES: No edema. CENTRAL NERVOUS SYSTEM: The patient has blurred vision. She is alert and oriented. She has left-sided weakness of both upper and lower extremities; however, she is able to move. The power is 3/5 to 4/5. Labs Laboratory Tests Test 10/19/16 13:00 10/19/16 13:07 10/19/16 13:45 10/20/16 04:16 White Blood Count 6.7x10^3/uL (4.0-11.0) 6.4x10^3/uL (4.0-11.0) Red Blood Count 4.39x10^6/uL (3.50-5.40) 4.00x10^6/uL (3.50-5.40) Hemoglobin 11.2g/dL (12.0-15.5) 10.3g/dL (12.0-15.5) Hematocrit 35.3% (36.0-47.0) 32.4% (36.0-47.0) Mean Corpuscular Volume 81fL (79-100) 81fL (79-100) Mean Corpuscular Hemoglobin 25pg (25-35) 26pg (25-35) Mean Corpuscular Hemoglobin Concent 32g/dL (31-37) 32g/dL (31-37) Red Cell Distribution Width 14.8% (11.5-14.5) 14.7% (11.5-14.5) Platelet Count 217x10^3/uL (140-400) 198x10^3/uL (140-400) Neutrophils (%) (Auto) 58% (31-73) 55% (31-73) Lymphocytes (%) (Auto) 27% (24-48) 30% (24-48) Monocytes (%) (Auto) 12% (0-9) 12% (0-9) Eosinophils (%) (Auto) 2% (0-3) 2% (0-3) Basophils (%) (Auto) 1% (0-3) 1% (0-3) Neutrophils # (Auto) 3.9x10^3uL (1.8-7.7) 3.5x10^3uL (1.8-7.7) Lymphocytes # (Auto) 1.8x10^3/uL (1.0-4.8) 1.9x10^3/uL (1.0-4.8) Monocytes # (Auto) 0.8x10^3/uL (0.0-1.1) 0.8x10^3/uL (0.0-1.1) Eosinophils # (Auto) 0.1x10^3/uL (0.0-0.7) 0.1x10^3/uL (0.0-0.7) Basophils # (Auto) 0.1x10^3/uL (0.0-0.2) 0.1x10^3/uL (0.0-0.2) Prothrombin Time 12.4SEC (11.7-14.0) Prothromb Time International Ratio 1.0 (0.8-1.1) Activated Partial Thromboplast Time 24SEC (24-38) Sodium Level 142mmol/L (136-145) 146mmol/L (136-145) Potassium Level 3.9mmol/L (3.5-5.1) 4.1mmol/L (3.5-5.1) Chloride Level 105mmol/L (98-107) 108mmol/L (98-107) Carbon Dioxide Level 30mmol/L (21-32) 30mmol/L (21-32) Anion Gap 7 (6-14) 16mmol/L (6-14) 8 (6-14) Blood Urea Nitrogen 14mg/dL (7-20) 14mg/dL (7-20) Creatinine 0.9mg/dL (0.6-1.0) 1.0mg/dL (0.6-1.0) Estimated GFR (Cockcroft-Gault) 61.2 54.2 BUN/Creatinine Ratio 16 (6-20) 14 (6-20) Glucose Level 143mg/dL (70-99) 140mg/dL (70-99) 125mg/dL (70-99) Calcium Level 9.2mg/dL (8.5-10.1) 8.7mg/dL (8.5-10.1) Total Bilirubin 0.3mg/dL (0.2-1.0) 0.2mg/dL (0.2-1.0) Aspartate Amino Transf (AST/SGOT) 14U/L (15-37) 16U/L (15-37) Alanine Aminotransferase (ALT/SGPT) 19U/L (14-59) 17U/L (14-59) Alkaline Phosphatase 66U/L (46-116) 65U/L (46-116) Troponin I Quantitative < 0.017ng/mL (0.000-0.055) Total Protein 6.9g/dL (6.4-8.2) 5.9g/dL (6.4-8.2) Albumin 3.5g/dL (3.4-5.0) 3.1g/dL (3.4-5.0) Albumin/Globulin Ratio 1.0 (1.0-1.7) 1.1 (1.0-1.7) Bedside Hemoglobin 11.9g/dL (12-15) Bedside Hematocrit 35% (36-40) Bedside Sodium 140mmol/L (135-145) Bedside Potassium 3.9mmol/L (3.5-5.0) Bedside Chloride 101mmol/L (98-110) Bedside Total CO2 27mmol/L (23-32) Bedside Blood Urea Nitrogen 13mg/dL (8-26) Bedside Creatinine 0.8mg/dL (0.5-1.4) Bedside Ionized Calcium (Greg) 1.19mmol/L (1.13-1.32) Bedside Troponin I 0.00ng/ml (<0.08) Urine Collection Type U cath Urine Color Yellow Urine Clarity Clear Urine pH 5.5 Urine Specific [place] 1.010 Urine Protein Negativemg/dL (NEG-TRACE) Urine Glucose (UA) Negativemg/dL (NEG) Urine Ketones (Stick) Negativemg/dL (NEG) Urine Blood Negative (NEG) Urine Nitrite Negative (NEG) Urine Bilirubin Negative (NEG) Urine Urobilinogen Dipstick 0.2mg/dL (0.2 mg/dL) Urine Leukocyte Esterase Negative (NEG) Urine RBC 0/HPF (0-2) Urine WBC 0/HPF (0-4) Urine Squamous Epithelial Cells Few/LPF Urine Bacteria 0/HPF (0-FEW) Urine Mucus Mod/LPF Magnesium Level 1.9mg/dL (1.8-2.4) Triglycerides Level 138mg/dL (0-150) Cholesterol Level 135mg/dL (0-200) LDL Cholesterol, Calculated 60mg/dL (0-100) VLDL Cholesterol, Calculated 28mg/dL (0-40) HDL Cholesterol 47mg/dL (40-60) Cholesterol/HDL Ratio 2.9 Laboratory Tests Test 10/19/16 13:45 10/20/16 04:16 Urine Collection Type U cath Urine Color Yellow Urine Clarity Clear Urine pH 5.5 Urine Specific [place] 1.010 Urine Protein Negativemg/dL (NEG-TRACE) Urine Glucose (UA) Negativemg/dL (NEG) Urine Ketones (Stick) Negativemg/dL (NEG) Urine Blood Negative (NEG) Urine Nitrite Negative (NEG) Urine Bilirubin Negative (NEG) Urine Urobilinogen Dipstick 0.2mg/dL (0.2 mg/dL) Urine Leukocyte Esterase Negative (NEG) Urine RBC 0/HPF (0-2) Urine WBC 0/HPF (0-4) Urine Squamous Epithelial Cells Few/LPF Urine Bacteria 0/HPF (0-FEW) Urine Mucus Mod/LPF White Blood Count 6.4x10^3/uL (4.0-11.0) Red Blood Count 4.00x10^6/uL (3.50-5.40) Hemoglobin 10.3g/dL (12.0-15.5) Hematocrit 32.4% (36.0-47.0) Mean Corpuscular Volume 81fL (79-100) Mean Corpuscular Hemoglobin 26pg (25-35) Mean Corpuscular Hemoglobin Concent 32g/dL (31-37) Red Cell Distribution Width 14.7% (11.5-14.5) Platelet Count 198x10^3/uL (140-400) Neutrophils (%) (Auto) 55% (31-73) Lymphocytes (%) (Auto) 30% (24-48) Monocytes (%) (Auto) 12% (0-9) Eosinophils (%) (Auto) 2% (0-3) Basophils (%) (Auto) 1% (0-3) Neutrophils # (Auto) 3.5x10^3uL (1.8-7.7) Lymphocytes # (Auto) 1.9x10^3/uL (1.0-4.8) Monocytes # (Auto) 0.8x10^3/uL (0.0-1.1) Eosinophils # (Auto) 0.1x10^3/uL (0.0-0.7) Basophils # (Auto) 0.1x10^3/uL (0.0-0.2) Sodium Level 146mmol/L (136-145) Potassium Level 4.1mmol/L (3.5-5.1) Chloride Level 108mmol/L (98-107) Carbon Dioxide Level 30mmol/L (21-32) Anion Gap 8 (6-14) Blood Urea Nitrogen 14mg/dL (7-20) Creatinine 1.0mg/dL (0.6-1.0) Estimated GFR (Cockcroft-Gault) 54.2 BUN/Creatinine Ratio 14 (6-20) Glucose Level 125mg/dL (70-99) Calcium Level 8.7mg/dL (8.5-10.1) Magnesium Level 1.9mg/dL (1.8-2.4) Total Bilirubin 0.2mg/dL (0.2-1.0) Aspartate Amino Transf (AST/SGOT) 16U/L (15-37) Alanine Aminotransferase (ALT/SGPT) 17U/L (14-59) Alkaline Phosphatase 65U/L (46-116) Total Protein 5.9g/dL (6.4-8.2) Albumin 3.1g/dL (3.4-5.0) Albumin/Globulin Ratio 1.1 (1.0-1.7) Triglycerides Level 138mg/dL (0-150) Cholesterol Level 135mg/dL (0-200) LDL Cholesterol, Calculated 60mg/dL (0-100) VLDL Cholesterol, Calculated 28mg/dL (0-40) HDL Cholesterol 47mg/dL (40-60) Cholesterol/HDL Ratio 2.9 Meds Current Medications Acetaminophen (Tylenol) 650 mg PRN Q6HRS PRN PO MILD PAIN / TEMP; Start at 14:15 Albuterol Sulfate (Ventolin Neb Soln) 2.5 mg TID NEB Last administered on 12:58; Start 10/19/16 at 21:00 Atorvastatin Calcium (Lipitor) 10 mg QHS PO Last administered on 10/19/16 20: 50; Start 10/19/16 at 21:00 Budesonide (Pulmicort) 0.5 mg RTBID NEB Last administered on 10/20/16 06:05; Start 10/19/16 at 20:00 Cetirizine HCl (Zyrtec) 10 mg DAILY PO Last administered on 10/20/16 09:26; Start 10/20/16 at 09:00 Clopidogrel Bisulfate (Plavix) 75 mg DAILYWBKFT PO Last administered on 09:26; Start 10/20/16 at 08:00 Fluticasone Propionate (Flonase) 2 spray DAILY NS ; Start 10/20/16 at 09:00 Hydrochlorothiazide (Microzide) 12.5 mg DAILY PO Last administered on 09:26; Start 10/20/16 at 09:00 Losartan Potassium (Cozaar) 50 mg DAILY PO Last administered on 10/20/16 09:26 ; Start 10/20/16 at 09:00 Nitroglycerin (Nitrostat) 0.4 mg PRN Q5MIN PRN SL CHEST PAIN; Start 10/19/16 at 18:15 Non-Formulary Medication 1 puff BID IH ; Start 10/19/16 at 21:00; Stop 10/19/16 at 21:00; Status DC Non-Formulary Medication 1 vial TID NEB ; Start 10/19/16 at 21:00; Stop at 21:00; Status DC Verapamil HCl (Calan Sr) 180 mg DAILY PO Last administered on 10/20/16t 09:27; Start 10/20/16 at 09:00 Assessment Assessment 1. Acute cerebrovascular accident with left-sided weakness and blurring of vision. 2. Hypertension. 3. Coronary artery disease, status post coronary artery bypass graft x 4. 4. Chronic smoking. PLAN: Admit to [facility]. Consult Dr. Canela for Neurology evaluation and management. I have discussed the condition and treatment with the patient and her . She will need MRI and further workup. I will also have to get the list of her medications from our office records because her pharmacy is closed today. For details, please review the orders. MRI- acute right Thalamic infarct. Carotid doppler - atherosclerosis both carotid bulbs- left carotid imaging incomplete pt declined. May need CTA- d/w pt and family- Now on Plavix. Consult . Plan Plan For more details regarding further plans, please refer to the orders. VERONIKA TAI MD Oct 20, 2016 13:41
[2016-10-20] MEDS ORDERED: POTASSIUM CL 20MEQ D5-0.45NACL 1,000 ML IV PRN (13:45)
--- NOTE | 2016-10-20 14:31 | PDOC ---
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 Plan Carotid Doppler study was not completed, patient willing to let it get complete now so I notified radiology She will likely need inpatient rehabilitation Continue Plavix and atorvastatin Family has noticed some hypersomnia, this can occur in right hemispheric strokes I explained Discussed with patient's family. Subjective Complains of some left neck pain Objective Vital Signs Date Time Temp Pulse Resp B/P Pulse Ox O2 Delivery O2 Flow Rate FiO2 10/20/16 12:59 Room Air 10/20/16 09:27 84 142/56 10/20/16 07:00 97.7 18 97 97.7 10/20/16 06:09 2.0 Intake and Output 10/20/16 07:00 Intake Total 1240 ml Balance 1240 ml Intake Oral 240 ml IV Total 1000 ml # Voids 5 PHYSICAL EXAM Alert. Oriented to time, place and person. PERRL. EOMI. CN: no focal findings. Muscle tone: normal. Muscle strength: 4/5 on left DTR: 2+ Plantar reflex: flexor Gait: not examined in bed. Sensory exam: no abnormal findings. Left dysmetria Review of Relevant I have reviewed the following items javier (where applicable) has been applied. Labs Laboratory Tests Test 10/19/16 13:00 10/19/16 13:07 10/19/16 13:45 10/20/16 04:16 White Blood Count 6.7x10^3/uL (4.0-11.0) 6.4x10^3/uL (4.0-11.0) Red Blood Count 4.39x10^6/uL (3.50-5.40) 4.00x10^6/uL (3.50-5.40) Hemoglobin 11.2g/dL (12.0-15.5) 10.3g/dL (12.0-15.5) Hematocrit 35.3% (36.0-47.0) 32.4% (36.0-47.0) Mean Corpuscular Volume 81fL (79-100) 81fL (79-100) Mean Corpuscular Hemoglobin 25pg (25-35) 26pg (25-35) Mean Corpuscular Hemoglobin Concent 32g/dL (31-37) 32g/dL (31-37) Red Cell Distribution Width 14.8% (11.5-14.5) 14.7% (11.5-14.5) Platelet Count 217x10^3/uL (140-400) 198x10^3/uL (140-400) Neutrophils (%) (Auto) 58% (31-73) 55% (31-73) Lymphocytes (%) (Auto) 27% (24-48) 30% (24-48) Monocytes (%) (Auto) 12% (0-9) 12% (0-9) Eosinophils (%) (Auto) 2% (0-3) 2% (0-3) Basophils (%) (Auto) 1% (0-3) 1% (0-3) Neutrophils # (Auto) 3.9x10^3uL (1.8-7.7) 3.5x10^3uL (1.8-7.7) Lymphocytes # (Auto) 1.8x10^3/uL (1.0-4.8) 1.9x10^3/uL (1.0-4.8) Monocytes # (Auto) 0.8x10^3/uL (0.0-1.1) 0.8x10^3/uL (0.0-1.1) Eosinophils # (Auto) 0.1x10^3/uL (0.0-0.7) 0.1x10^3/uL (0.0-0.7) Basophils # (Auto) 0.1x10^3/uL (0.0-0.2) 0.1x10^3/uL (0.0-0.2) Prothrombin Time 12.4SEC (11.7-14.0) Prothromb Time International Ratio 1.0 (0.8-1.1) Activated Partial Thromboplast Time 24SEC (24-38) Sodium Level 142mmol/L (136-145) 146mmol/L (136-145) Potassium Level 3.9mmol/L (3.5-5.1) 4.1mmol/L (3.5-5.1) Chloride Level 105mmol/L (98-107) 108mmol/L (98-107) Carbon Dioxide Level 30mmol/L (21-32) 30mmol/L (21-32) Anion Gap 7 (6-14) 16mmol/L (6-14) 8 (6-14) Blood Urea Nitrogen 14mg/dL (7-20) 14mg/dL (7-20) Creatinine 0.9mg/dL (0.6-1.0) 1.0mg/dL (0.6-1.0) Estimated GFR (Cockcroft-Gault) 61.2 54.2 BUN/Creatinine Ratio 16 (6-20) 14 (6-20) Glucose Level 143mg/dL (70-99) 140mg/dL (70-99) 125mg/dL (70-99) Calcium Level 9.2mg/dL (8.5-10.1) 8.7mg/dL (8.5-10.1) Total Bilirubin 0.3mg/dL (0.2-1.0) 0.2mg/dL (0.2-1.0) Aspartate Amino Transf (AST/SGOT) 14U/L (15-37) 16U/L (15-37) Alanine Aminotransferase (ALT/SGPT) 19U/L (14-59) 17U/L (14-59) Alkaline Phosphatase 66U/L (46-116) 65U/L (46-116) Troponin I Quantitative < 0.017ng/mL (0.000-0.055) Total Protein 6.9g/dL (6.4-8.2) 5.9g/dL (6.4-8.2) Albumin 3.5g/dL (3.4-5.0) 3.1g/dL (3.4-5.0) Albumin/Globulin Ratio 1.0 (1.0-1.7) 1.1 (1.0-1.7) Bedside Hemoglobin 11.9g/dL (12-15) Bedside Hematocrit 35% (36-40) Bedside Sodium 140mmol/L (135-145) Bedside Potassium 3.9mmol/L (3.5-5.0) Bedside Chloride 101mmol/L (98-110) Bedside Total CO2 27mmol/L (23-32) Bedside Blood Urea Nitrogen 13mg/dL (8-26) Bedside Creatinine 0.8mg/dL (0.5-1.4) Bedside Ionized Calcium (Greg) 1.19mmol/L (1.13-1.32) Bedside Troponin I 0.00ng/ml (<0.08) Urine Collection Type U cath Urine Color Yellow Urine Clarity Clear Urine pH 5.5 Urine Specific [place] 1.010 Urine Protein Negativemg/dL (NEG-TRACE) Urine Glucose (UA) Negativemg/dL (NEG) Urine Ketones (Stick) Negativemg/dL (NEG) Urine Blood Negative (NEG) Urine Nitrite Negative (NEG) Urine Bilirubin Negative (NEG) Urine Urobilinogen Dipstick 0.2mg/dL (0.2 mg/dL) Urine Leukocyte Esterase Negative (NEG) Urine RBC 0/HPF (0-2) Urine WBC 0/HPF (0-4) Urine Squamous Epithelial Cells Few/LPF Urine Bacteria 0/HPF (0-FEW) Urine Mucus Mod/LPF Magnesium Level 1.9mg/dL (1.8-2.4) Triglycerides Level 138mg/dL (0-150) Cholesterol Level 135mg/dL (0-200) LDL Cholesterol, Calculated 60mg/dL (0-100) VLDL Cholesterol, Calculated 28mg/dL (0-40) HDL Cholesterol 47mg/dL (40-60) Cholesterol/HDL Ratio 2.9 Laboratory Tests Test 10/20/16 04:16 White Blood Count 6.4x10^3/uL (4.0-11.0) Red Blood Count 4.00x10^6/uL (3.50-5.40) Hemoglobin 10.3g/dL (12.0-15.5) Hematocrit 32.4% (36.0-47.0) Mean Corpuscular Volume 81fL (79-100) Mean Corpuscular Hemoglobin 26pg (25-35) Mean Corpuscular Hemoglobin Concent 32g/dL (31-37) Red Cell Distribution Width 14.7% (11.5-14.5) Platelet Count 198x10^3/uL (140-400) Neutrophils (%) (Auto) 55% (31-73) Lymphocytes (%) (Auto) 30% (24-48) Monocytes (%) (Auto) 12% (0-9) Eosinophils (%) (Auto) 2% (0-3) Basophils (%) (Auto) 1% (0-3) Neutrophils # (Auto) 3.5x10^3uL (1.8-7.7) Lymphocytes # (Auto) 1.9x10^3/uL (1.0-4.8) Monocytes # (Auto) 0.8x10^3/uL (0.0-1.1) Eosinophils # (Auto) 0.1x10^3/uL (0.0-0.7) Basophils # (Auto) 0.1x10^3/uL (0.0-0.2) Sodium Level 146mmol/L (136-145) Potassium Level 4.1mmol/L (3.5-5.1) Chloride Level 108mmol/L (98-107) Carbon Dioxide Level 30mmol/L (21-32) Anion Gap 8 (6-14) Blood Urea Nitrogen 14mg/dL (7-20) Creatinine 1.0mg/dL (0.6-1.0) Estimated GFR (Cockcroft-Gault) 54.2 BUN/Creatinine Ratio 14 (6-20) Glucose Level 125mg/dL (70-99) Calcium Level 8.7mg/dL (8.5-10.1) Magnesium Level 1.9mg/dL (1.8-2.4) Total Bilirubin 0.2mg/dL (0.2-1.0) Aspartate Amino Transf (AST/SGOT) 16U/L (15-37) Alanine Aminotransferase (ALT/SGPT) 17U/L (14-59) Alkaline Phosphatase 65U/L (46-116) Total Protein 5.9g/dL (6.4-8.2) Albumin 3.1g/dL (3.4-5.0) Albumin/Globulin Ratio 1.1 (1.0-1.7) Triglycerides Level 138mg/dL (0-150) Cholesterol Level 135mg/dL (0-200) LDL Cholesterol, Calculated 60mg/dL (0-100) VLDL Cholesterol, Calculated 28mg/dL (0-40) HDL Cholesterol 47mg/dL (40-60) Cholesterol/HDL Ratio 2.9 Medications Current Medications Sodium Chloride (Iv Sodium Chloride 0.9% 1000ml Bag) 1,000 ml @ 1,000 mls/hr Q1H IV Last administered on 10/19/16 13:40; Start 10/19/16 at 13:06; Stop 07/25 at 14:05; Status DC Aspirin (Ecotrin) 325 mg 1X ONCE PO Last administered on 10/19/16 13:40; Start 10/19/16 at 13:15; Stop 10/19/16 at 13:16; Status DC Acetaminophen (Tylenol) 650 mg PRN Q6HRS PRN PO MILD PAIN / TEMP; Start at 14:15 Nitroglycerin (Nitrostat) 0.4 mg PRN Q5MIN PRN SL CHEST PAIN; Start 10/19/16 at 18:15 Non-Formulary Medication 1 vial TID NEB ; Start 10/19/16 at 21:00; Stop at 21:00; Status DC Fluticasone Propionate (Flonase) 2 spray DAILY NS ; Start 10/20/16 at 09:00 Non-Formulary Medication 1 puff BID IH ; Start 10/19/16 at 21:00; Stop 10/19/16 at 21:00; Status DC Cetirizine HCl (Zyrtec) 10 mg DAILY PO Last administered on 10/20/16 09:26; Start 10/20/16 at 09:00 Losartan Potassium (Cozaar) 50 mg DAILY PO Last administered on 10/20/16 09:26 ; Start 10/20/16 at 09:00 Atorvastatin Calcium (Lipitor) 10 mg QHS PO Last administered on 10/19/16 20: 50; Start 10/19/16 at 21:00 Verapamil HCl (Calan Sr) 180 mg DAILY PO Last administered on 10/20/16 09:27; Start 10/20/16 at 09:00 Hydrochlorothiazide (Microzide) 12.5 mg DAILY PO Last administered on 09:26; Start 10/20/16 at 09:00 Budesonide (Pulmicort) 0.5 mg RTBID NEB Last administered on 10/20/16 06:05; Start 10/19/16 at 20:00 Albuterol Sulfate (Ventolin Neb Soln) 2.5 mg TID NEB Last administered on 12:58; Start 10/19/16 at 21:00 Clopidogrel Bisulfate 75 mg 75 mg DAILYWBKFT PO Last administered on 10/20/16 09:26; Start 10/20/16 at 08:00 Potassium Chloride/Dextrose/ Sod Cl (KCl 20 Meq In D5W-1/2 NS) 1,000 ml @ 60 mls/hr [id number] PRN IV SEE I/O RECORD; Start 10/20/16 at 13:45 Active Scripts Active Reported NITROGLYCERIN SubLingual (Nitroglycerin) 0.4 Mg Tab.subl 0.4 Mg SL PRN Q5MIN PRN Aspirin 81 Mg Tab.chew 1 Tab PO DAILY Flonase Allergy Relief (Fluticasone Propionate) 9.9 Ml Teller.susp 2 Sprays NS DAILY Losartan-Hctz 50-12.5 Mg Tab (Losartan/Hydrochlorothiazide) 1 Each Tablet 1 Tab PO DAILY Metoprolol ER-Hctz 50-12.5 mg (Metoprolol Succinate/Hctz) 1 Each Tab.er.24h 1 Each PO Pravastatin Sodium 40 Mg Tablet 1 Tab PO QHS Verapamil Er (Verapamil Hcl) 180 Mg Cap24h.pel 180 Mg PO DAILY Albuterol Sulfate Neb Soln (Albuterol Sulfate) 0.63 Mg/3 Ml Vial.neb 1 Vial NEB TID Flovent 100MCG Diskus (Fluticasone Propionate) 100 Mcg Disk.w.dev 1 Puff IH BID Loratadine 10 Mg Tablet 1 Tab PO DAILY Vitals/I & O Vital Sign - Last 24 Hours 10/19/16 10/19/16 10/19/16 10/19/16 17:09 19:00 20:00 23:00 Temp 97.6 98.3 97.6 98.3 Pulse 81 81 Resp 18 18 B/P 149/56 140/58 Pulse Ox 92 93 O2 Delivery Room Air Room Air Nasal Cannula Room Air O2 Flow Rate 2.0 10/20/16 10/20/16 10/20/16 10/20/16 03:00 06:07 06:09 07:00 Temp 98.3 97.7 98.3 97.7 Pulse 83 84 Resp 18 18 B/P 138/61 142/56 Pulse Ox 93 95 95 97 O2 Delivery Room Air Nasal Cannula Nasal Cannula Room Air O2 Flow Rate 2.0 2.0 10/20/16 10/20/16 10/20/16 09:26 09:27 12:59 Pulse 84 84 B/P 142/56 142/56 O2 Delivery Room Air Intake and Output 10/19/16 10/19/16 10/20/16 15:00 23:00 07:00 Intake Total 1000 ml 240 ml 0 ml Balance 1000 ml 240 ml 0 ml Images MRI brain: 1.Corresponding with CT findings, there is recent subacute infarct of the right thalamus extending to the right midbrain. 2. There are a few small old infarcts of the left parietal lobe. Carotids: incomplete study SUE HERNANDEZ MD Oct 20, 2016 14:31
[2016-10-20 15:00] VITALS: BP 141/58
[2016-10-20 19:00] VITALS: BP 142/43
[2016-10-20] MEDS: ATORVASTATIN CALCIUM 10 MG TABLET. PO SCH (21:48)
[2016-10-20 23:00] VITALS: BP 129/49
[2016-10-21 03:00] VITALS: BP 136/47
[2016-10-21 04:51] LABS: BASO # 0.1 x10^3/uL (0.0-0.2); BASO % 1 % (0-3); EOS % 2 % (0-3); HEMATOCRIT 33.5 % (36.0-47.0); HEMOGLOBIN 10.7 g/dL (12.0-15.5); LYMPH # 1.9 x10^3/uL (1.0-4.8); LYMPH % 26 % (24-48); MEAN CORPUSCULAR HEMOGLOBIN 26 pg (25-35); MEAN CORPUSCULAR HGB CONC 32 g/dL (31-37); MEAN CORPUSCULAR VOLUME 81 fL (79-100); MONO % 11 % (0-9); NEUT % 60 % (31-73); PLATELET COUNT 208 x10^3/uL (140-400); RED BLOOD COUNT 4.13 x10^6/uL (3.50-5.40); RED CELL DISTRIBUTION WIDTH 14.8 % (11.5-14.5); WHITE BLOOD COUNT 7.6 x10^3/uL (4.0-11.0)
[2016-10-21 05:34] LABS: ALBUMIN 3.2 g/dL (3.4-5.0); CALCIUM 8.9 mg/dL (8.5-10.1); GFR 54.2; POTASSIUM 3.9 mmol/L (3.5-5.1); TOTAL BILIRUBIN 0.2 mg/dL (0.2-1.0); TOTAL PROTEIN 6.4 g/dL (6.4-8.2)
[2016-10-21] MEDS: ALBUTEROL SULFATE 2.5 MG/3 ML NEBU. NEB SCH ×3 (07:39→17:26)
[2016-10-21] MEDS: BUDESONIDE 0.5 MG/2 ML NEBU NEB SCH ×2 (07:40→17:25)
--- NOTE | 2016-10-21 07:50 | RAD ---
Left carotid ultrasound, 10/20/2016: History: CVA Duplex evaluation of the left carotid bifurcation was performed including grayscale, color-flow and spectral Doppler analysis. This study was previously attempted on 08/18/2017 but was not completed due to poor patient cooperation. The right side was evaluated at that time. There is considerable atherosclerotic plaquing at the left carotid bifurcation. The plaques are partially calcified with associated shadowing obscuring portions of the underlying lumen. There is a prominent velocity acceleration in the proximal left internal carotid artery up to 260 cm/s. The end-diastolic velocity at that level is mildly elevated at 54 cm/s. The common carotid artery velocities in this patient also somewhat elevated. The internal carotid artery to common carotid artery ratio is 1.4. The peak systolic velocity measurement suggests luminal narrowing of greater than 70%. The end-diastolic velocity measurement suggests narrowing in the 50-70% diameter range. The internal carotid artery to common carotid artery ratio suggests narrowing of less than 50%. These discrepancies cannot be definitively clarified due to obscuration of the lumen by the calcifications, however, the stenosis probably is in the 50-70% diameter range. Similar findings were present on the previous study of 07/20/2012. Antegrade flow is evident in the left vertebral artery in the neck. IMPRESSION: Moderately severe atherosclerotic plaquing at the left carotid bifurcation with underlying luminal narrowing in the 50-70% diameter range, similar to that seen on 07/20/2012. Note: Stenosis calculations for CT, MRA and conventional angiography are based upon determination of the distal ICA diameter in accordance with the NASCET methodology. Stenosis calculations for Doppler studies are derived from validated velocity criteria which are known to correlate with NASCET methodology of determining stenosis.
[2016-10-21 07:59] VITALS: BP 136/58
--- NOTE | 2016-10-21 08:19 | CARD ---
APPROVED REPORT EXAM: Two-dimensional and M-mode echocardiogram with Doppler and color Doppler. Other Information Quality : GoodHR: 81bpm Rhythm : NSR INDICATION CVA 2D DIMENSIONS RVDd1.9 (2.9-3.5cm)Left Atrium(2D)3.2 (1.6-4.0cm) IVSd0.9 (0.7-1.1cm)Aortic Root(2D)3.0 (2.0-3.7cm) LVDd4.6 (3.9-5.9cm)LVOT Diameter2.1 (1.8-2.4cm) PWd0.7 (0.7-1.1cm)LVDs3.0 (2.5-4.0cm) FS (%) 33.9 %SV60.5 ml LVEF(%)62.8 (>50%) Aortic Valve AoV Peak Yunier.143.1cm/sAoV VTI29.0cm AO Peak GR.8.2mmHgLVOT Peak Yunier.112.8cm/s AO Mean GR.4mmHgAVA (VMAX)2.75cm2 Mitral Valve MV E Jnixiuln75.7cm/sMV E Peak Gr.4mmHg MV DECEL [id number] A Jztngell92.5cm/s MV E Mean Gr.2mmHgE/A Ratio0.8 MV A [id number] Pulmonary Valve PV Peak Rdsjlsqz264.3cm/s Pulmonary Vein S1 Yhdzalnl60.2cm/sD2 Ahnhufge75.4cm/s PVa [id number] LEFT VENTRICLE The left ventricle is normal size. There is normal left ventricular wall thickness. The left ventricu lar systolic function is normal and the ejection fraction is within normal range. The Ejection Fracti on is 60-65%. There is grossly normal LV segmental wall motion. Transmitral Doppler flow pattern is G rade I-abnormal relaxation pattern. No left ventricle thrombus noted on this study. RIGHT VENTRICLE The right ventricle is normal size. There is normal right ventricular wall thickness. The right ventr icular systolic function is normal. ATRIA The left atrium size is normal. The right atrium size is normal. The interatrial septum is intact wit h no evidence for an atrial septal defect or patent foramen ovale as noted on 2-D or Doppler imaging. AORTIC VALVE The aortic valve is mildly sclerotic and not well visualized. Doppler and Color Flow revealed no sign ificant aortic regurgitation. There is no significant aortic valvular stenosis. MITRAL VALVE Mitral annular calcification is mild. The mitral valve leaflets are thickened. There is no evidence o f mitral valve prolapse. There is no mitral valve stenosis. Doppler and Color Flow revealed no mitral valve regurgitation noted. TRICUSPID VALVE The tricuspid valve is normal in structure and function. Doppler and Color Flow revealed no tricuspid valve regurgitation noted. There is no pulmonary hypertension. PULMONIC VALVE Doppler and Color Flow revealed no pulmonic valvular regurgitation. There is no pulmonic valvular tiago nosis. GREAT VESSELS The aortic root is normal in size. The ascending aorta is normal in size. The IVC is normal in size a nd collapses >50% with inspiration. PERICARDIAL EFFUSION There is no evidence of significant pericardial effusion. Critical Notification Critical Value: No <Conclusion> The left ventricular systolic function is normal and the ejection fraction is within normal range. Th e Ejection Fraction is 60-65%. There is grossly normal LV segmental wall motion. The aortic valve is mildly sclerotic and not well visualized.
[2016-10-21] MEDS: FLUTICASONE 50MCG/NASAL SPRAY 16GM BOTTLE. NS SCH (09:00)
--- NOTE | 2016-10-21 09:17 | PDOC ---
PROGRESS NOTES Subjective Subjective unsteady gait Objective Objective Vital Signs Date Time Temp Pulse Resp B/P Pulse Ox O2 Delivery O2 Flow Rate FiO2 10/21/16 07:59 97.9 75 18 136/58 91 Nasal Cannula 2.0 97.9 Intake and Output 10/21/16 07:00 Intake Total 640 ml Balance 640 ml Intake Oral 640 ml # Voids 4 Physical Exam Abdomen: Normal bowel sounds, Soft Heart: Regular rate, Normal S1, Normal S2 Extremities: No clubbing General: Alert, Oriented X3, Cooperative HEENT: Atraumatic Lungs: Clear to auscultation MUSCULOSKELETAL: No deformity Neck: Supple Neuro: Normal speech Psych/Mental Status: Mental status NL Skin: No breakdown COMMENT ataxic gait Diagnosis Problem List Problems Medical Problems: (1) Acute CVA (cerebrovascular accident) Status: Acute (2) CVA (cerebral vascular accident) Status: Acute Assessment Assessment 1. Acute cerebrovascular accident with left-sided weakness and blurring of vision. 2. Hypertension. 3. Coronary artery disease, status post coronary artery bypass graft x 4. 4. Chronic smoking. PLAN: rehab consult pt/ot speech. spoke with daughter , social work. echo good lvf. carotid no significant stenosis. mri thalamic infarct rt Admit to [facility]. Consult Dr. Canela for Neurology evaluation and management. I have discussed the condition and treatment with the patient and her . She will need MRI and further workup. I will also have to get the list of her medications from our office records because her pharmacy is closed today. For details, please review the orders. MRI- acute right Thalamic infarct. Carotid doppler - atherosclerosis both carotid bulbs- left carotid imaging incomplete pt declined. May need CTA- d/w pt and family- Now on Plavix. Consult . Problems: Plan Plan of Care Problems Medical Problems: (1) Acute CVA (cerebrovascular accident) Status: Acute (2) CVA (cerebral vascular accident) Status: Acute Comment Review of Relevant I have reviewed the following items javier (where applicable) has been applied. Labs Laboratory Tests Test 10/21/16 03:30 10/21/16 03:35 Sodium Level 144mmol/L (136-145) Potassium Level 3.9mmol/L (3.5-5.1) Chloride Level 106mmol/L (98-107) Carbon Dioxide Level 30mmol/L (21-32) Anion Gap 8 (6-14) Blood Urea Nitrogen 13mg/dL (7-20) Creatinine 1.0mg/dL (0.6-1.0) Estimated GFR (Cockcroft-Gault) 54.2 BUN/Creatinine Ratio 13 (6-20) Glucose Level 106mg/dL (70-99) Calcium Level 8.9mg/dL (8.5-10.1) Total Bilirubin 0.2mg/dL (0.2-1.0) Aspartate Amino Transf (AST/SGOT) 15U/L (15-37) Alanine Aminotransferase (ALT/SGPT) 19U/L (14-59) Alkaline Phosphatase 64U/L (46-116) Total Protein 6.4g/dL (6.4-8.2) Albumin 3.2g/dL (3.4-5.0) Albumin/Globulin Ratio 1.0 (1.0-1.7) White Blood Count 7.6x10^3/uL (4.0-11.0) Red Blood Count 4.13x10^6/uL (3.50-5.40) Hemoglobin 10.7g/dL (12.0-15.5) Hematocrit 33.5% (36.0-47.0) Mean Corpuscular Volume 81fL (79-100) Mean Corpuscular Hemoglobin 26pg (25-35) Mean Corpuscular Hemoglobin Concent 32g/dL (31-37) Red Cell Distribution Width 14.8% (11.5-14.5) Platelet Count 208x10^3/uL (140-400) Neutrophils (%) (Auto) 60% (31-73) Lymphocytes (%) (Auto) 26% (24-48) Monocytes (%) (Auto) 11% (0-9) Eosinophils (%) (Auto) 2% (0-3) Basophils (%) (Auto) 1% (0-3) Neutrophils # (Auto) 4.5x10^3uL (1.8-7.7) Lymphocytes # (Auto) 1.9x10^3/uL (1.0-4.8) Monocytes # (Auto) 0.9x10^3/uL (0.0-1.1) Eosinophils # (Auto) 0.2x10^3/uL (0.0-0.7) Basophils # (Auto) 0.1x10^3/uL (0.0-0.2) Medications Current Medications Potassium Chloride/Dextrose/ Sod Cl (KCl 20 Meq In D5W-1/2 NS) 1,000 ml @ 60 mls/hr [id number] PRN IV SEE I/O RECORD; Start 10/20/16 at 13:45 Vitals/I & O Vital Sign - Last 24 Hours 10/20/16 10/20/16 10/20/16 10/20/16 09:26 09:27 12:59 15:00 Temp 97.7 97.7 Pulse 84 84 87 Resp 18 B/P 142/56 142/56 141/58 Pulse Ox 97 O2 Delivery Room Air Room Air 10/20/16 10/20/16 10/20/16 10/20/16 18:08 19:00 20:00 23:00 Temp 97.7 97.9 97.7 97.9 Pulse 88 83 Resp 22 20 B/P 142/43 129/49 Pulse Ox 91 90 O2 Delivery Room Air Room Air Nasal Cannula Room Air O2 Flow Rate 2.0 10/21/16 10/21/16 10/21/16 10/21/16 03:00 07:43 07:48 07:59 Temp 97.5 97.9 97.5 97.9 Pulse 72 75 Resp 18 18 B/P 136/47 136/58 Pulse Ox 92 97 97 91 O2 Delivery Room Air Nasal Cannula Nasal Cannula Nasal Cannula O2 Flow Rate 2.0 2.0 2.0 Intake and Output 10/20/16 10/20/16 10/21/16 15:00 23:00 07:00 Intake Total 640 ml 0 ml Balance 640 ml 0 ml SIMON SUAREZ MD Oct 21, 2016 09:17
[2016-10-21] MEDS: HYDROCHLOROTHIAZIDE 12.5 MG CAPSULE. PO SCH (09:35)
[2016-10-21] MEDS: LOSARTAN POTASSIUM 50 MG TABLET. PO SCH (09:36)
[2016-10-21] MEDS: CLOPIDOGREL BISULFATE 75 MG TABLET PO SCH (09:38)
[2016-10-21] MEDS: CETIRIZINE HCL 10 MG TABLET PO SCH (09:38)
[2016-10-21] MEDS: VERAPAMIL SR 180 MG TABLET.ER. PO SCH (09:38)
[2016-10-21] MEDS ORDERED: BISACODYL 10 MG SUPP.RECT PR PRN (09:45)
--- NOTE | 2016-10-21 10:28 | PDOC ---
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 Subjective No complaints Objective Vital Signs Date Time Temp Pulse Resp B/P Pulse Ox O2 Delivery O2 Flow Rate FiO2 10/21/16 09:38 75 136/58 10/21/16 08:00 Nasal Cannula 10/21/16 07:59 97.9 18 91 2.0 97.9 Intake and Output 10/21/16 07:00 Intake Total 640 ml Balance 640 ml Intake Oral 640 ml # Voids 4 PHYSICAL EXAM Alert. Oriented to time, place and person. PERRL. EOMI. CN: no focal findings. Muscle tone: normal. Muscle strength: 4/5 on left DTR: 2+ Plantar reflex: flexor Gait: not examined in bed. Sensory exam: no abnormal findings. Left dysmetria Review of Relevant I have reviewed the following items javier (where applicable) has been applied. Labs Laboratory Tests Test 10/19/16 12:54 10/19/16 13:00 10/19/16 13:07 10/19/16 13:45 Glucose (Fingerstick) 133mg/dL (70-99) White Blood Count 6.7x10^3/uL (4.0-11.0) Red Blood Count 4.39x10^6/uL (3.50-5.40) Hemoglobin 11.2g/dL (12.0-15.5) Hematocrit 35.3% (36.0-47.0) Mean Corpuscular Volume 81fL (79-100) Mean Corpuscular Hemoglobin 25pg (25-35) Mean Corpuscular Hemoglobin Concent 32g/dL (31-37) Red Cell Distribution Width 14.8% (11.5-14.5) Platelet Count 217x10^3/uL (140-400) Neutrophils (%) (Auto) 58% (31-73) Lymphocytes (%) (Auto) 27% (24-48) Monocytes (%) (Auto) 12% (0-9) Eosinophils (%) (Auto) 2% (0-3) Basophils (%) (Auto) 1% (0-3) Neutrophils # (Auto) 3.9x10^3uL (1.8-7.7) Lymphocytes # (Auto) 1.8x10^3/uL (1.0-4.8) Monocytes # (Auto) 0.8x10^3/uL (0.0-1.1) Eosinophils # (Auto) 0.1x10^3/uL (0.0-0.7) Basophils # (Auto) 0.1x10^3/uL (0.0-0.2) Prothrombin Time 12.4SEC (11.7-14.0) Prothromb Time International Ratio 1.0 (0.8-1.1) Activated Partial Thromboplast Time 24SEC (24-38) Sodium Level 142mmol/L (136-145) Potassium Level 3.9mmol/L (3.5-5.1) Chloride Level 105mmol/L (98-107) Carbon Dioxide Level 30mmol/L (21-32) Anion Gap 7 (6-14) 16mmol/L (6-14) Blood Urea Nitrogen 14mg/dL (7-20) Creatinine 0.9mg/dL (0.6-1.0) Estimated GFR (Cockcroft-Gault) 61.2 BUN/Creatinine Ratio 16 (6-20) Glucose Level 143mg/dL (70-99) 140mg/dL (70-99) Calcium Level 9.2mg/dL (8.5-10.1) Total Bilirubin 0.3mg/dL (0.2-1.0) Aspartate Amino Transf (AST/SGOT) 14U/L (15-37) Alanine Aminotransferase (ALT/SGPT) 19U/L (14-59) Alkaline Phosphatase 66U/L (46-116) Troponin I Quantitative < 0.017ng/mL (0.000-0.055) Total Protein 6.9g/dL (6.4-8.2) Albumin 3.5g/dL (3.4-5.0) Albumin/Globulin Ratio 1.0 (1.0-1.7) Bedside Hemoglobin 11.9g/dL (12-15) Bedside Hematocrit 35% (36-40) Bedside Sodium 140mmol/L (135-145) Bedside Potassium 3.9mmol/L (3.5-5.0) Bedside Chloride 101mmol/L (98-110) Bedside Total CO2 27mmol/L (23-32) Bedside Blood Urea Nitrogen 13mg/dL (8-26) Bedside Creatinine 0.8mg/dL (0.5-1.4) Bedside Ionized Calcium (Greg) 1.19mmol/L (1.13-1.32) Bedside Troponin I 0.00ng/ml (<0.08) Urine Collection Type U cath Urine Color Yellow Urine Clarity Clear Urine pH 5.5 Urine Specific Aldie 1.010 Urine Protein Negativemg/dL (NEG-TRACE) Urine Glucose (UA) Negativemg/dL (NEG) Urine Ketones (Stick) Negativemg/dL (NEG) Urine Blood Negative (NEG) Urine Nitrite Negative (NEG) Urine Bilirubin Negative (NEG) Urine Urobilinogen Dipstick 0.2mg/dL (0.2 mg/dL) Urine Leukocyte Esterase Negative (NEG) Urine RBC 0/HPF (0-2) Urine WBC 0/HPF (0-4) Urine Squamous Epithelial Cells Few/LPF Urine Bacteria 0/HPF (0-FEW) Urine Mucus Mod/LPF Test 10/20/16 04:16 10/21/16 03:30 10/21/16 03:35 White Blood Count 6.4x10^3/uL (4.0-11.0) 7.6x10^3/uL (4.0-11.0) Red Blood Count 4.00x10^6/uL (3.50-5.40) 4.13x10^6/uL (3.50-5.40) Hemoglobin 10.3g/dL (12.0-15.5) 10.7g/dL (12.0-15.5) Hematocrit 32.4% (36.0-47.0) 33.5% (36.0-47.0) Mean Corpuscular Volume 81fL (79-100) 81fL (79-100) Mean Corpuscular Hemoglobin 26pg (25-35) 26pg (25-35) Mean Corpuscular Hemoglobin Concent 32g/dL (31-37) 32g/dL (31-37) Red Cell Distribution Width 14.7% (11.5-14.5) 14.8% (11.5-14.5) Platelet Count 198x10^3/uL (140-400) 208x10^3/uL (140-400) Neutrophils (%) (Auto) 55% (31-73) 60% (31-73) Lymphocytes (%) (Auto) 30% (24-48) 26% (24-48) Monocytes (%) (Auto) 12% (0-9) 11% (0-9) Eosinophils (%) (Auto) 2% (0-3) 2% (0-3) Basophils (%) (Auto) 1% (0-3) 1% (0-3) Neutrophils # (Auto) 3.5x10^3uL (1.8-7.7) 4.5x10^3uL (1.8-7.7) Lymphocytes # (Auto) 1.9x10^3/uL (1.0-4.8) 1.9x10^3/uL (1.0-4.8) Monocytes # (Auto) 0.8x10^3/uL (0.0-1.1) 0.9x10^3/uL (0.0-1.1) Eosinophils # (Auto) 0.1x10^3/uL (0.0-0.7) 0.2x10^3/uL (0.0-0.7) Basophils # (Auto) 0.1x10^3/uL (0.0-0.2) 0.1x10^3/uL (0.0-0.2) Sodium Level 146mmol/L (136-145) 144mmol/L (136-145) Potassium Level 4.1mmol/L (3.5-5.1) 3.9mmol/L (3.5-5.1) Chloride Level 108mmol/L (98-107) 106mmol/L (98-107) Carbon Dioxide Level 30mmol/L (21-32) 30mmol/L (21-32) Anion Gap 8 (6-14) 8 (6-14) Blood Urea Nitrogen 14mg/dL (7-20) 13mg/dL (7-20) Creatinine 1.0mg/dL (0.6-1.0) 1.0mg/dL (0.6-1.0) Estimated GFR (Cockcroft-Gault) 54.2 54.2 BUN/Creatinine Ratio 14 (6-20) 13 (6-20) Glucose Level 125mg/dL (70-99) 106mg/dL (70-99) Calcium Level 8.7mg/dL (8.5-10.1) 8.9mg/dL (8.5-10.1) Magnesium Level 1.9mg/dL (1.8-2.4) Total Bilirubin 0.2mg/dL (0.2-1.0) 0.2mg/dL (0.2-1.0) Aspartate Amino Transf (AST/SGOT) 16U/L (15-37) 15U/L (15-37) Alanine Aminotransferase (ALT/SGPT) 17U/L (14-59) 19U/L (14-59) Alkaline Phosphatase 65U/L (46-116) 64U/L (46-116) Total Protein 5.9g/dL (6.4-8.2) 6.4g/dL (6.4-8.2) Albumin 3.1g/dL (3.4-5.0) 3.2g/dL (3.4-5.0) Albumin/Globulin Ratio 1.1 (1.0-1.7) 1.0 (1.0-1.7) Triglycerides Level 138mg/dL (0-150) Cholesterol Level 135mg/dL (0-200) LDL Cholesterol, Calculated 60mg/dL (0-100) VLDL Cholesterol, Calculated 28mg/dL (0-40) HDL Cholesterol 47mg/dL (40-60) Cholesterol/HDL Ratio 2.9 Laboratory Tests Test 10/21/16 03:30 10/21/16 03:35 Sodium Level 144mmol/L (136-145) Potassium Level 3.9mmol/L (3.5-5.1) Chloride Level 106mmol/L (98-107) Carbon Dioxide Level 30mmol/L (21-32) Anion Gap 8 (6-14) Blood Urea Nitrogen 13mg/dL (7-20) Creatinine 1.0mg/dL (0.6-1.0) Estimated GFR (Cockcroft-Gault) 54.2 BUN/Creatinine Ratio 13 (6-20) Glucose Level 106mg/dL (70-99) Calcium Level 8.9mg/dL (8.5-10.1) Total Bilirubin 0.2mg/dL (0.2-1.0) Aspartate Amino Transf (AST/SGOT) 15U/L (15-37) Alanine Aminotransferase (ALT/SGPT) 19U/L (14-59) Alkaline Phosphatase 64U/L (46-116) Total Protein 6.4g/dL (6.4-8.2) Albumin 3.2g/dL (3.4-5.0) Albumin/Globulin Ratio 1.0 (1.0-1.7) White Blood Count 7.6x10^3/uL (4.0-11.0) Red Blood Count 4.13x10^6/uL (3.50-5.40) Hemoglobin 10.7g/dL (12.0-15.5) Hematocrit 33.5% (36.0-47.0) Mean Corpuscular Volume 81fL (79-100) Mean Corpuscular Hemoglobin 26pg (25-35) Mean Corpuscular Hemoglobin Concent 32g/dL (31-37) Red Cell Distribution Width 14.8% (11.5-14.5) Platelet Count 208x10^3/uL (140-400) Neutrophils (%) (Auto) 60% (31-73) Lymphocytes (%) (Auto) 26% (24-48) Monocytes (%) (Auto) 11% (0-9) Eosinophils (%) (Auto) 2% (0-3) Basophils (%) (Auto) 1% (0-3) Neutrophils # (Auto) 4.5x10^3uL (1.8-7.7) Lymphocytes # (Auto) 1.9x10^3/uL (1.0-4.8) Monocytes # (Auto) 0.9x10^3/uL (0.0-1.1) Eosinophils # (Auto) 0.2x10^3/uL (0.0-0.7) Basophils # (Auto) 0.1x10^3/uL (0.0-0.2) Medications Current Medications Sodium Chloride (Iv Sodium Chloride 0.9% 1000ml Bag) 1,000 ml @ 1,000 mls/hr Q1H IV Last administered on 2/11/17at 13:40; Start 10/19/16 at 13:06; Stop 07/25 at 14:05; Status DC Aspirin (Ecotrin) 325 mg 1X ONCE PO Last administered on 10/19/16 13:40; Start 10/19/16 at 13:15; Stop 10/19/16 at 13:16; Status DC Acetaminophen (Tylenol) 650 mg PRN Q6HRS PRN PO MILD PAIN / TEMP; Start at 14:15 Nitroglycerin (Nitrostat) 0.4 mg PRN Q5MIN PRN SL CHEST PAIN; Start 10/19/16 at 18:15 Non-Formulary Medication 1 vial TID NEB ; Start 10/19/16 at 21:00; Stop at 21:00; Status DC Fluticasone Propionate (Flonase) 2 spray DAILY NS ; Start 10/20/16 at 09:00 Non-Formulary Medication 1 puff BID IH ; Start 10/19/16 at 21:00; Stop 10/19/16 at 21:00; Status DC Cetirizine HCl (Zyrtec) 10 mg DAILY PO Last administered on 10/21/16 09:38; Start 10/20/16 at 09:00 Losartan Potassium (Cozaar) 50 mg DAILY PO Last administered on 10/21/16 09:36 ; Start 10/20/16 at 09:00 Atorvastatin Calcium (Lipitor) 10 mg QHS PO Last administered on 10/20/16 21: 48; Start 10/19/16 at 21:00 Verapamil HCl (Calan Sr) 180 mg DAILY PO Last administered on 10/21/16 09:38; Start 10/20/16 at 09:00 Hydrochlorothiazide (Microzide) 12.5 mg DAILY PO Last administered on 09:35; Start 10/20/16 at 09:00 Budesonide (Pulmicort) 0.5 mg RTBID NEB Last administered on 10/21/16 07:40; Start 10/19/16 at 20:00 Albuterol Sulfate (Ventolin Neb Soln) 2.5 mg TID NEB Last administered on 07:39; Start 10/19/16 at 21:00 Clopidogrel Bisulfate 75 mg 75 mg [id number] PO Last administered on 10/21/16t 09:38; Start 10/20/16 at 08:00 Potassium Chloride/Dextrose/ Sod Cl (KCl 20 Meq In D5W-1/2 NS) 1,000 ml @ 60 mls/hr [id number] PRN IV SEE I/O RECORD; Start 10/20/16 at 13:45; Stop 10/21/16 at 09:19; Status DC Nicotine (Nicoderm Cq 21mg) 1 patch DAILY TD ; Start 10/21/16 at 10:30 Bisacodyl (Dulcolax Tab) 10 mg DAILY PO ; Start 10/21/16 at 10:30 Bisacodyl (Dulcolax Supp) 10 mg PRN DAILY PRN OK CONSTIPATION; Start 10/21/16 at 09:45 Senna/Docusate Sodium (Senna Plus) 1 tab BID PO ; Start 10/21/16 at 10:30 Active Scripts Active Reported NITROGLYCERIN SubLingual (Nitroglycerin) 0.4 Mg Tab.subl 0.4 Mg SL PRN Q5MIN PRN Aspirin 81 Mg Tab.chew 1 Tab PO DAILY Flonase Allergy Relief (Fluticasone Propionate) 9.9 Ml [place].susp 2 Sprays NS DAILY Losartan-Hctz 50-12.5 Mg Tab (Losartan/Hydrochlorothiazide) 1 Each Tablet 1 Tab PO DAILY Metoprolol ER-Hctz 50-12.5 mg (Metoprolol Succinate/Hctz) 1 Each Tab.er.24h 1 Each PO Pravastatin Sodium 40 Mg Tablet 1 Tab PO QHS Verapamil Er (Verapamil Hcl) 180 Mg Cap24h.pel 180 Mg PO DAILY Albuterol Sulfate Neb Soln (Albuterol Sulfate) 0.63 Mg/3 Ml Vial.neb 1 Vial NEB TID Flovent 100MCG Diskus (Fluticasone Propionate) 100 Mcg Disk.w.dev 1 Puff IH BID Loratadine 10 Mg Tablet 1 Tab PO DAILY Vitals/I & O Vital Sign - Last 24 Hours 10/20/16 10/20/16 10/20/16 10/20/16 12:59 15:00 18:08 19:00 Temp 97.7 97.7 97.7 97.7 Pulse 87 88 Resp 18 22 B/P 141/58 142/43 Pulse Ox 97 91 O2 Delivery Room Air Room Air Room Air Room Air 10/20/16 10/20/16 10/21/16 10/21/16 20:00 23:00 03:00 07:43 Temp 97.9 97.5 97.9 97.5 Pulse 83 72 Resp 20 18 B/P 129/49 136/47 Pulse Ox 90 92 97 O2 Delivery Nasal Cannula Room Air Room Air Nasal Cannula O2 Flow Rate 2.0 2.0 10/21/16 10/21/16 10/21/16 10/21/16 07:48 07:59 08:00 09:36 Temp 97.9 97.9 Pulse 75 75 Resp 18 B/P 136/58 136/58 Pulse Ox 97 91 O2 Delivery Nasal Cannula Nasal Cannula Nasal Cannula O2 Flow Rate 2.0 2.0 10/21/16 09:38 Pulse 75 B/P 136/58 Intake and Output 10/20/16 10/20/16 10/21/16 15:00 23:00 07:00 Intake Total 640 ml 0 ml Balance 640 ml 0 ml Images Left carotid Doppler: Moderately severe atherosclerotic plaquing at the left carotid bifurcation with underlying luminal narrowing in the 50-70% diameter range, similar to that seen on 07/20/2012. Right carotid Doppler was -2 days ago Echocardiogram: The left ventricular systolic function is normal and the ejection fraction is within normal range. The Ejection Fraction is 60-65%. There is grossly normal LV segmental wall motion. The aortic valve is mildly sclerotic and not well visualized. SUE HERNANDEZ MD Oct 21, 2016 10:28
[2016-10-21 10:41] VITALS: BP 132/56
--- NOTE | 2016-10-21 13:07 | PDOC ---
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 10/21/16 1307: CARDIO Progress Notes Date and Time Date of Service 10/21/2016 Time of Evaluation 1250 Subjective Subjective: No Chest Pain, No shortness of breath, No Palpitations, No Dizziness Vitals Vitals Vital Signs Date Time Temp Pulse Resp B/P Pulse Ox O2 Delivery O2 Flow Rate FiO2 10/21/16 10:41 98.6 96 18 132/56 90 Room Air 98.6 10/21/16 07:59 2.0 Weight Weight [ ] Input and Output Intake and Output Intake and Output 10/21/16 07:00 Intake Total 640 ml Balance 640 ml Intake Oral 640 ml # Voids 4 Laboratory Labs Laboratory Tests Test 10/21/16 03:30 10/21/16 03:35 Sodium Level 144mmol/L (136-145) Potassium Level 3.9mmol/L (3.5-5.1) Chloride Level 106mmol/L (98-107) Carbon Dioxide Level 30mmol/L (21-32) Anion Gap 8 (6-14) Blood Urea Nitrogen 13mg/dL (7-20) Creatinine 1.0mg/dL (0.6-1.0) Estimated GFR (Cockcroft-Gault) 54.2 BUN/Creatinine Ratio 13 (6-20) Glucose Level 106mg/dL (70-99) Calcium Level 8.9mg/dL (8.5-10.1) Total Bilirubin 0.2mg/dL (0.2-1.0) Aspartate Amino Transf (AST/SGOT) 15U/L (15-37) Alanine Aminotransferase (ALT/SGPT) 19U/L (14-59) Alkaline Phosphatase 64U/L (46-116) Total Protein 6.4g/dL (6.4-8.2) Albumin 3.2g/dL (3.4-5.0) Albumin/Globulin Ratio 1.0 (1.0-1.7) White Blood Count 7.6x10^3/uL (4.0-11.0) Red Blood Count 4.13x10^6/uL (3.50-5.40) Hemoglobin 10.7g/dL (12.0-15.5) Hematocrit 33.5% (36.0-47.0) Mean Corpuscular Volume 81fL (79-100) Mean Corpuscular Hemoglobin 26pg (25-35) Mean Corpuscular Hemoglobin Concent 32g/dL (31-37) Red Cell Distribution Width 14.8% (11.5-14.5) Platelet Count 208x10^3/uL (140-400) Neutrophils (%) (Auto) 60% (31-73) Lymphocytes (%) (Auto) 26% (24-48) Monocytes (%) (Auto) 11% (0-9) Eosinophils (%) (Auto) 2% (0-3) Basophils (%) (Auto) 1% (0-3) Neutrophils # (Auto) 4.5x10^3uL (1.8-7.7) Lymphocytes # (Auto) 1.9x10^3/uL (1.0-4.8) Monocytes # (Auto) 0.9x10^3/uL (0.0-1.1) Eosinophils # (Auto) 0.2x10^3/uL (0.0-0.7) Basophils # (Auto) 0.1x10^3/uL (0.0-0.2) Physical Exam HEENT: Neck Supple W Full Motion Chest: Symmetric LUNGS: Other (diffuse faint wheeze with bibasilar crackles) Heart: S1S2, RRR, no murmurs Abdomen: Soft N/T Extremities: No Calf Tenderness, Other (1+ bilateral LE pitting edema) Neurology: alert, oriented, follow commands Assessment Assessment 1. Acute CVA: right thalamic lacunar infarct with left side weakness 2. Left carotid stenosis: moderate to severe to bifurcation 3. Known CAD: no anginal symptoms. Stable 4. COPD/LORRI Recommendation 1. TTE with normal wall motion and EF, no significant valvular disease. Tele with no signs of AFIB 2. BP controlled. Continue with secondary prevention 3. No further cardiac testing 4. Follow up with outpt primary data consultant in 4 weeks. 5. It appears she was referred to Dr. Romano (vascular) in the past, defer to PCP STANISLAW ANGUIANO MD 10/21/16 3201: CARDIO Progress Notes Plan Plan Pt. seen and examined. Agree with above PROFESSOR OF PATHOLOGY note. No acute events overnight. Patient appears fatigued. No cardiac abnormalities. Labs/meds reviewed. Supportive care from CV perspective. LISA LIZ APRN Oct 21, 2016 13:07 STANISLAW ANGUIANO MD Oct 21, 2016 22:15
[2016-10-21] MEDS: NICOTINE 21MG PATCH. TD SCH (13:57)
[2016-10-21] MEDS: BISACODYL 5 MG TABLET.DR. PO SCH (13:58)
[2016-10-21] MEDS: SENNOSIDES/DOCUSATE 8.6/50MG TABLET. PO SCH ×2 (13:58→20:48)
[2016-10-21 15:25] VITALS: BP 137/59
[2016-10-21 19:00] VITALS: BP 148/56
[2016-10-21] MEDS: ATORVASTATIN CALCIUM 10 MG TABLET. PO SCH (20:47)
[2016-10-21 23:00] VITALS: BP 138/58
[2016-10-22 03:00] VITALS: BP 144/51
--- NOTE | 2016-10-22 03:22 | CONS ---
DATE OF CONSULTATION: LOCATION: She is in room 652. ATTENDING PHYSICIAN: Dr. French. The patient was seen at the request of Dr. Lora for rehab evaluation. HISTORY OF PRESENT ILLNESS: This is a 76-year-old right-handed female having diplopia for a while. On 10/18/2016, she felt weak and on the morning of 10/19/2016, she noted left-sided weakness. Because of unknown onset of symptoms, she did not receive TPA. The patient with known coronary artery disease status post coronary artery bypass graft, hypertension, hyperlipidemia, chronic obstructive pulmonary disease, sleep apnea, still smokes, had used nicotine patch in the past, still smokes 1 pack of cigarettes per day, gastroesophageal reflux disease, osteoarthritis. The patient also had a cataract surgery, hysterectomy, family history of coronary artery disease. She takes alcoholic beverages on occasion. She is not known allergic to any medications. She lives with her in a trailer home, had 4 steps with railing and prior to the present hospitalization, she used a cane on an as needed basis. The patient admits some right-sided neck pain and left hip pain. The patient admits some difficulty with urination since her hospitalization and she had chronic problems with constipation, goes to the bathroom, maybe once in 4 days. PHYSICAL EXAMINATION: Today revealed an elderly female, she is alert, oriented to time, place, person and circumstance and follows commands appropriately, moves all 4 extremities voluntarily where she had 4/5 grade muscle strength with relatively increased weakness in left hand intrinsic muscles. Deep tendon reflexes are brisk bilaterally. She had positive Hamilton sign bilaterally. She had equal perception of touch and pinprick sensation bilaterally. She had mild incoordination using her left upper and lower extremities. She requires supervision in coming to a standing position and once up, she walked with somewhat wide-based gait and left leg lax behind and that makes her a fall risk as she had tendency to lean to the left side. Her skin is intact at this time. She had tenderness to palpation over right cervical paraspinal muscles and also over sacroiliac joint area and straight leg raising test is negative bilaterally. She had pain free range of motion on both hip joints. She had mild crepitus on range of motion of both knee joints without any obvious knee joint effusion or any pain on range of motion of her knees. ASSESSMENT: An elderly female with recent onset cerebrovascular accident, ____ upon by CT scan and MRI scan with mild left hemiparesis and ataxia. I did not see any obvious evidence of any diplopia or visual field cut or facial asymmetry. The patient also presents with right cervical paraspinal muscle strain and chronic hip pain complaints, most probably from degenerative disk disease of lumbar vertebrae without any clinical evidence of ongoing lumbar radiculopathy, mild degenerative joint disease of her knees without much pain. The patient with coronary artery disease, hypertension, hyperlipidemia, chronic obstructive pulmonary disease, still uses tobacco, sleep apnea, gastroesophageal reflux disease status post coronary artery bypass graft, cataract surgery and hysterectomy. RECOMMENDATIONS: She is not safe to return home. She needs acute inpatient rehab program to help improve her functional mobility and self-care skills before she can return home to ask for a screen and transfer to inpatient rehab unit for continued inpatient stroke rehab program. Dr. Lora, I appreciate asking me to participate in care of this interesting patient. I will be glad to follow her with you as needed for her rehabilitation. CHERRY CORTEZ MD DR: RAJNI/verito JOB#: [id number] / [id number]
[2016-10-22 04:31] LABS: BASO # 0.1 x10^3/uL (0.0-0.2); BASO % 1 % (0-3); EOS % 2 % (0-3); HEMATOCRIT 34.8 % (36.0-47.0); HEMOGLOBIN 11.4 g/dL (12.0-15.5); LYMPH # 1.8 x10^3/uL (1.0-4.8); LYMPH % 19 % (24-48); MEAN CORPUSCULAR HEMOGLOBIN 26 pg (25-35); MEAN CORPUSCULAR HGB CONC 33 g/dL (31-37); MEAN CORPUSCULAR VOLUME 79 fL (79-100); MONO % 11 % (0-9); NEUT % 67 % (31-73); PLATELET COUNT 226 x10^3/uL (140-400); RED BLOOD COUNT 4.42 x10^6/uL (3.50-5.40); RED CELL DISTRIBUTION WIDTH 14.8 % (11.5-14.5); WHITE BLOOD COUNT 9.3 x10^3/uL (4.0-11.0)
[2016-10-22 05:15] LABS: ALBUMIN 3.3 g/dL (3.4-5.0); ALBUMIN/GLOBULIN RATIO 0.9 (1.0-1.7); CALCIUM 9.2 mg/dL (8.5-10.1); CREATININE 0.9 mg/dL (0.6-1.0); GFR 61.2; POTASSIUM 3.8 mmol/L (3.5-5.1); TOTAL BILIRUBIN 0.3 mg/dL (0.2-1.0)
[2016-10-22 07:00] VITALS: BP 126/58
[2016-10-22] MEDS: BUDESONIDE 0.5 MG/2 ML NEBU NEB SCH (07:30)
[2016-10-22] MEDS: ALBUTEROL SULFATE 2.5 MG/3 ML NEBU. NEB SCH (07:30)
[2016-10-22] MEDS: SENNOSIDES/DOCUSATE 8.6/50MG TABLET. PO SCH (08:26)
[2016-10-22] MEDS: BISACODYL 5 MG TABLET.DR. PO SCH (08:26)
[2016-10-22] MEDS: NICOTINE 21MG PATCH. TD SCH (08:26)
[2016-10-22] MEDS: HYDROCHLOROTHIAZIDE 12.5 MG CAPSULE. PO SCH (08:29)
[2016-10-22] MEDS: LOSARTAN POTASSIUM 50 MG TABLET. PO SCH (08:29)
[2016-10-22] MEDS: VERAPAMIL SR 180 MG TABLET.ER. PO SCH (08:31)
[2016-10-22] MEDS: CETIRIZINE HCL 10 MG TABLET PO SCH (08:31)
[2016-10-22] MEDS: CLOPIDOGREL BISULFATE 75 MG TABLET PO SCH (08:32)
[2016-10-22] MEDS: FLUTICASONE 50MCG/NASAL SPRAY 16GM BOTTLE. NS SCH (09:00)
--- NOTE | 2016-10-22 09:12 | PDOC ---
PROGRESS NOTES Subjective Subjective c/o double vision and ataxic gait Objective Objective Vital Signs Date Time Temp Pulse Resp B/P Pulse Ox O2 Delivery O2 Flow Rate FiO2 10/22/16 08:31 93 126/58 10/22/16 08:00 Nasal Cannula 2.0 10/22/16 07:00 97.9 30 92 97.9 Intake and Output 10/22/16 07:01 Intake Total 560 ml Balance 560 ml Intake Oral 560 ml # Voids 4 Physical Exam Abdomen: Normal bowel sounds, Soft Heart: Regular rate, Normal S1, Normal S2 Extremities: No clubbing General: Alert, Oriented X3, Cooperative HEENT: Atraumatic Lungs: Clear to auscultation MUSCULOSKELETAL: No deformity Neck: Supple Neuro: Normal speech Psych/Mental Status: Mental status NL Skin: No breakdown COMMENT ataxic gait Diagnosis Problem List Problems Medical Problems: (1) Acute CVA (cerebrovascular accident) Status: Acute (2) CVA (cerebral vascular accident) Status: Acute Assessment Assessment 1. Acute cerebrovascular accident with left-sided weakness and blurring of vision lt thalamic infarct. 2. Hypertension. 3. Coronary artery disease, status post coronary artery bypass graft x 4. 4. Chronic smoking. PLAN: d/c to rehab today. spoke with neurology rehab consult pt/ot speech. spoke with daughter , social work. echo good lvf. carotid no significant stenosis. mri thalamic infarct rt. Admit to [facility]. Consult Dr. Canela for Neurology evaluation and management. I have discussed the condition and treatment with the patient and her . She will need MRI and further workup. I will also have to get the list of her medications from our office records because her pharmacy is closed today. For details, please review the orders. MRI- acute right Thalamic infarct. Carotid doppler - atherosclerosis both carotid bulbs- left carotid imaging incomplete pt declined. May need CTA- d/w pt and family- Now on Plavix. Consult . Problems: Plan Plan of Care Problems Medical Problems: (1) Acute CVA (cerebrovascular accident) Status: Acute (2) CVA (cerebral vascular accident) Status: Acute Comment Review of Relevant I have reviewed the following items javier (where applicable) has been applied. Labs Laboratory Tests Test 10/22/16 03:25 White Blood Count 9.3x10^3/uL (4.0-11.0) Red Blood Count 4.42x10^6/uL (3.50-5.40) Hemoglobin 11.4g/dL (12.0-15.5) Hematocrit 34.8% (36.0-47.0) Mean Corpuscular Volume 79fL (79-100) Mean Corpuscular Hemoglobin 26pg (25-35) Mean Corpuscular Hemoglobin Concent 33g/dL (31-37) Red Cell Distribution Width 14.8% (11.5-14.5) Platelet Count 226x10^3/uL (140-400) Neutrophils (%) (Auto) 67% (31-73) Lymphocytes (%) (Auto) 19% (24-48) Monocytes (%) (Auto) 11% (0-9) Eosinophils (%) (Auto) 2% (0-3) Basophils (%) (Auto) 1% (0-3) Neutrophils # (Auto) 6.3x10^3uL (1.8-7.7) Lymphocytes # (Auto) 1.8x10^3/uL (1.0-4.8) Monocytes # (Auto) 1.0x10^3/uL (0.0-1.1) Eosinophils # (Auto) 0.2x10^3/uL (0.0-0.7) Basophils # (Auto) 0.1x10^3/uL (0.0-0.2) Sodium Level 143mmol/L (136-145) Potassium Level 3.8mmol/L (3.5-5.1) Chloride Level 103mmol/L (98-107) Carbon Dioxide Level 28mmol/L (21-32) Anion Gap 12 (6-14) Blood Urea Nitrogen 14mg/dL (7-20) Creatinine 0.9mg/dL (0.6-1.0) Estimated GFR (Cockcroft-Gault) 61.2 BUN/Creatinine Ratio 16 (6-20) Glucose Level 118mg/dL (70-99) Calcium Level 9.2mg/dL (8.5-10.1) Total Bilirubin 0.3mg/dL (0.2-1.0) Aspartate Amino Transf (AST/SGOT) 16U/L (15-37) Alanine Aminotransferase (ALT/SGPT) 21U/L (14-59) Alkaline Phosphatase 60U/L (46-116) Total Protein 7.0g/dL (6.4-8.2) Albumin 3.3g/dL (3.4-5.0) Albumin/Globulin Ratio 0.9 (1.0-1.7) Medications Current Medications Bisacodyl (Dulcolax Supp) 10 mg PRN DAILY PRN ID CONSTIPATION; Start 10/21/16 at 09:45 Bisacodyl (Dulcolax Tab) 10 mg DAILY PO Last administered on 10/22/16 08:26; Start 10/21/16 at 10:30 Nicotine (Nicoderm Cq 21mg) 1 patch DAILY TD Last administered on 10/22/16 08: 26; Start 10/21/16 at 10:30 Senna/Docusate Sodium (Senna Plus) 1 tab BID PO Last administered on 10/22/16 08:26; Start 10/21/16 at 10:30 Vitals/I & O Vital Sign - Last 24 Hours 10/21/16 10/21/16 10/21/16 10/21/16 09:36 09:38 10:41 13:34 Temp 98.6 98.6 Pulse 75 75 96 Resp 18 B/P 136/58 136/58 132/56 Pulse Ox 90 O2 Delivery Room Air Nasal Cannula O2 Flow Rate 2.0 10/21/16 10/21/16 10/21/16 10/21/16 15:25 17:27 19:00 20:00 Temp 98.3 99.0 98.3 99.0 Pulse 86 94 Resp 18 18 B/P 137/59 148/56 Pulse Ox 93 98 93 O2 Delivery Nasal Cannula Nasal Cannula Room Air Nasal Cannula O2 Flow Rate 2.0 2.0 2.0 10/21/16 10/22/16 10/22/16 10/22/16 23:00 03:00 07:00 08:00 Temp 98.0 98.4 97.9 98.0 98.4 97.9 Pulse 89 84 93 Resp 18 20 30 B/P 138/58 144/51 126/58 Pulse Ox 94 96 92 O2 Delivery Room Air Room Air Nasal Cannula Nasal Cannula O2 Flow Rate 2.0 2.0 10/22/16 10/22/16 08:29 08:31 Pulse 93 93 B/P 126/58 126/58 Intake and Output 10/21/16 10/21/16 10/22/16 15:01 23:01 07:01 Intake Total 560 ml 0 ml Balance 560 ml 0 ml SIMON SUAREZ MD Oct 22, 2016 09:12
--- NOTE | 2016-10-22 10:34 | PDOC ---
PROGRESS NOTES Subjective Subjective She does not feel well and admits some double vision and nursing reports of occasional confusion. Objective Objective Vital Signs Date Time Temp Pulse Resp B/P Pulse Ox O2 Delivery O2 Flow Rate FiO2 10/22/16 09:34 92 Nasal Cannula 2.0 10/22/16 08:31 93 126/58 10/22/16 07:00 97.9 30 97.9 Intake and Output 10/22/16 07:00 Intake Total 560 ml Balance 560 ml Intake Oral 560 ml # Voids 4 Physical Exam Physical Exam She is alert,comfortable,talking and she had horizontal double vision looking up and also looking at TV and it is corrected by closing one eye.She continues with [id number] using left upper and lower extremities and ataxia. Assessment Assessment Problems Medical Problems: (1) Acute CVA (cerebrovascular accident) Status: Acute (2) CVA (cerebral vascular accident) Status: Acute Plan Plan of Care To inpatient rehab unit at [facility] this afternoon. Comment Review of Relevant I have reviewed the following items javier (where applicable) has been applied. Labs Laboratory Tests Test 10/21/16 03:30 10/21/16 03:35 10/22/16 03:25 Sodium Level 144mmol/L (136-145) 143mmol/L (136-145) Potassium Level 3.9mmol/L (3.5-5.1) 3.8mmol/L (3.5-5.1) Chloride Level 106mmol/L (98-107) 103mmol/L (98-107) Carbon Dioxide Level 30mmol/L (21-32) 28mmol/L (21-32) Anion Gap 8 (6-14) 12 (6-14) Blood Urea Nitrogen 13mg/dL (7-20) 14mg/dL (7-20) Creatinine 1.0mg/dL (0.6-1.0) 0.9mg/dL (0.6-1.0) Estimated GFR (Cockcroft-Gault) 54.2 61.2 BUN/Creatinine Ratio 13 (6-20) 16 (6-20) Glucose Level 106mg/dL (70-99) 118mg/dL (70-99) Calcium Level 8.9mg/dL (8.5-10.1) 9.2mg/dL (8.5-10.1) Total Bilirubin 0.2mg/dL (0.2-1.0) 0.3mg/dL (0.2-1.0) Aspartate Amino Transf (AST/SGOT) 15U/L (15-37) 16U/L (15-37) Alanine Aminotransferase (ALT/SGPT) 19U/L (14-59) 21U/L (14-59) Alkaline Phosphatase 64U/L (46-116) 60U/L (46-116) Total Protein 6.4g/dL (6.4-8.2) 7.0g/dL (6.4-8.2) Albumin 3.2g/dL (3.4-5.0) 3.3g/dL (3.4-5.0) Albumin/Globulin Ratio 1.0 (1.0-1.7) 0.9 (1.0-1.7) White Blood Count 7.6x10^3/uL (4.0-11.0) 9.3x10^3/uL (4.0-11.0) Red Blood Count 4.13x10^6/uL (3.50-5.40) 4.42x10^6/uL (3.50-5.40) Hemoglobin 10.7g/dL (12.0-15.5) 11.4g/dL (12.0-15.5) Hematocrit 33.5% (36.0-47.0) 34.8% (36.0-47.0) Mean Corpuscular Volume 81fL (79-100) 79fL (79-100) Mean Corpuscular Hemoglobin 26pg (25-35) 26pg (25-35) Mean Corpuscular Hemoglobin Concent 32g/dL (31-37) 33g/dL (31-37) Red Cell Distribution Width 14.8% (11.5-14.5) 14.8% (11.5-14.5) Platelet Count 208x10^3/uL (140-400) 226x10^3/uL (140-400) Neutrophils (%) (Auto) 60% (31-73) 67% (31-73) Lymphocytes (%) (Auto) 26% (24-48) 19% (24-48) Monocytes (%) (Auto) 11% (0-9) 11% (0-9) Eosinophils (%) (Auto) 2% (0-3) 2% (0-3) Basophils (%) (Auto) 1% (0-3) 1% (0-3) Neutrophils # (Auto) 4.5x10^3uL (1.8-7.7) 6.3x10^3uL (1.8-7.7) Lymphocytes # (Auto) 1.9x10^3/uL (1.0-4.8) 1.8x10^3/uL (1.0-4.8) Monocytes # (Auto) 0.9x10^3/uL (0.0-1.1) 1.0x10^3/uL (0.0-1.1) Eosinophils # (Auto) 0.2x10^3/uL (0.0-0.7) 0.2x10^3/uL (0.0-0.7) Basophils # (Auto) 0.1x10^3/uL (0.0-0.2) 0.1x10^3/uL (0.0-0.2) Laboratory Tests Test 10/22/16 03:25 White Blood Count 9.3x10^3/uL (4.0-11.0) Red Blood Count 4.42x10^6/uL (3.50-5.40) Hemoglobin 11.4g/dL (12.0-15.5) Hematocrit 34.8% (36.0-47.0) Mean Corpuscular Volume 79fL (79-100) Mean Corpuscular Hemoglobin 26pg (25-35) Mean Corpuscular Hemoglobin Concent 33g/dL (31-37) Red Cell Distribution Width 14.8% (11.5-14.5) Platelet Count 226x10^3/uL (140-400) Neutrophils (%) (Auto) 67% (31-73) Lymphocytes (%) (Auto) 19% (24-48) Monocytes (%) (Auto) 11% (0-9) Eosinophils (%) (Auto) 2% (0-3) Basophils (%) (Auto) 1% (0-3) Neutrophils # (Auto) 6.3x10^3uL (1.8-7.7) Lymphocytes # (Auto) 1.8x10^3/uL (1.0-4.8) Monocytes # (Auto) 1.0x10^3/uL (0.0-1.1) Eosinophils # (Auto) 0.2x10^3/uL (0.0-0.7) Basophils # (Auto) 0.1x10^3/uL (0.0-0.2) Sodium Level 143mmol/L (136-145) Potassium Level 3.8mmol/L (3.5-5.1) Chloride Level 103mmol/L (98-107) Carbon Dioxide Level 28mmol/L (21-32) Anion Gap 12 (6-14) Blood Urea Nitrogen 14mg/dL (7-20) Creatinine 0.9mg/dL (0.6-1.0) Estimated GFR (Cockcroft-Gault) 61.2 BUN/Creatinine Ratio 16 (6-20) Glucose Level 118mg/dL (70-99) Calcium Level 9.2mg/dL (8.5-10.1) Total Bilirubin 0.3mg/dL (0.2-1.0) Aspartate Amino Transf (AST/SGOT) 16U/L (15-37) Alanine Aminotransferase (ALT/SGPT) 21U/L (14-59) Alkaline Phosphatase 60U/L (46-116) Total Protein 7.0g/dL (6.4-8.2) Albumin 3.3g/dL (3.4-5.0) Albumin/Globulin Ratio 0.9 (1.0-1.7) Medications Current Medications Sodium Chloride (Iv Sodium Chloride 0.9% 1000ml Bag) 1,000 ml @ 1,000 mls/hr Q1H IV Last administered on 10/19/16 13:40; Start 10/19/16 at 13:06; Stop 07/25 at 14:05; Status DC Aspirin (Ecotrin) 325 mg 1X ONCE PO Last administered on 10/19/16 13:40; Start 10/19/16 at 13:15; Stop 10/19/16 at 13:16; Status DC Acetaminophen (Tylenol) 650 mg PRN Q6HRS PRN PO MILD PAIN / TEMP; Start at 14:15 Nitroglycerin (Nitrostat) 0.4 mg PRN Q5MIN PRN SL CHEST PAIN; Start 10/19/16 at 18:15 Non-Formulary Medication 1 vial TID NEB ; Start 10/19/16 at 21:00; Stop at 21:00; Status DC Fluticasone Propionate (Flonase) 2 spray DAILY NS ; Start 10/20/16 at 09:00 Non-Formulary Medication 1 puff BID IH ; Start 10/19/16 at 21:00; Stop 10/19/16 at 21:00; Status DC Cetirizine HCl (Zyrtec) 10 mg DAILY PO Last administered on 10/22/16 08:31; Start 10/20/16 at 09:00 Losartan Potassium (Cozaar) 50 mg DAILY PO Last administered on 10/22/16 08:29 ; Start 10/20/16 at 09:00 Atorvastatin Calcium (Lipitor) 10 mg QHS PO Last administered on 10/21/16 20: 47; Start 10/19/16 at 21:00 Verapamil HCl (Calan Sr) 180 mg DAILY PO Last administered on 10/22/16 08:31; Start 10/20/16 at 09:00 Hydrochlorothiazide (Microzide) 12.5 mg DAILY PO Last administered on 08:29; Start 10/20/16 at 09:00 Budesonide (Pulmicort) 0.5 mg RTBID NEB Last administered on 10/22/16 07:30; Start 10/19/16 at 20:00 Albuterol Sulfate (Ventolin Neb Soln) 2.5 mg TID NEB Last administered on 07:30; Start 10/19/16 at 21:00 Clopidogrel Bisulfate 75 mg 75 mg DAILYWBKFT PO Last administered on 10/22/16 08:32; Start 10/20/16 at 08:00 Potassium Chloride/Dextrose/ Sod Cl (KCl 20 Meq In D5W-1/2 NS) 1,000 ml @ 60 mls/hr [id number] PRN IV SEE I/O RECORD; Start 10/20/16 at 13:45; Stop 10/21/16 at 09:19; Status DC Nicotine (Nicoderm Cq 21mg) 1 patch DAILY TD Last administered on 10/22/16 08: 26; Start 10/21/16 at 10:30 Bisacodyl (Dulcolax Tab) 10 mg DAILY PO Last administered on 10/22/16 08:26; Start 10/21/16 at 10:30 Bisacodyl (Dulcolax Supp) 10 mg PRN DAILY PRN OR CONSTIPATION; Start 10/21/16 at 09:45 Senna/Docusate Sodium (Senna Plus) 1 tab BID PO Last administered on 10/22/16 08:26; Start 10/21/16 at 10:30 Active Scripts Active Reported NITROGLYCERIN SubLingual (Nitroglycerin) 0.4 Mg Tab.subl 0.4 Mg SL PRN Q5MIN PRN Aspirin 81 Mg Tab.chew 1 Tab PO DAILY Flonase Allergy Relief (Fluticasone Propionate) 9.9 Ml [place].susp 2 Sprays NS DAILY Losartan-Hctz 50-12.5 Mg Tab (Losartan/Hydrochlorothiazide) 1 Each Tablet 1 Tab PO DAILY Metoprolol ER-Hctz 50-12.5 mg (Metoprolol Succinate/Hctz) 1 Each Tab.er.24h 1 Each PO Pravastatin Sodium 40 Mg Tablet 1 Tab PO QHS Verapamil Er (Verapamil Hcl) 180 Mg Cap24h.pel 180 Mg PO DAILY Albuterol Sulfate Neb Soln (Albuterol Sulfate) 0.63 Mg/3 Ml Vial.neb 1 Vial NEB TID Flovent 100MCG Diskus (Fluticasone Propionate) 100 Mcg Disk.w.dev 1 Puff IH BID Loratadine 10 Mg Tablet 1 Tab PO DAILY Vitals/I & O Vital Sign - Last 24 Hours 10/21/16 10/21/16 10/21/16 10/21/16 10:41 13:34 15:25 17:27 Temp 98.6 98.3 98.6 98.3 Pulse 96 86 Resp 18 18 B/P 132/56 137/59 Pulse Ox 90 93 98 O2 Delivery Room Air Nasal Cannula Nasal Cannula Nasal Cannula O2 Flow Rate 2.0 2.0 2.0 10/21/16 10/21/16 10/21/16 10/22/16 19:00 20:00 23:00 03:00 Temp 99.0 98.0 98.4 99.0 98.0 98.4 Pulse 94 89 84 Resp 18 18 20 B/P 148/56 138/58 144/51 Pulse Ox 93 94 96 O2 Delivery Room Air Nasal Cannula Room Air Room Air O2 Flow Rate 2.0 10/22/16 10/22/16 10/22/16 10/22/16 07:00 07:31 08:00 08:29 Temp 97.9 97.9 Pulse 93 93 Resp 30 B/P 126/58 126/58 Pulse Ox 92 92 O2 Delivery Nasal Cannula Nasal Cannula Nasal Cannula O2 Flow Rate 2.0 2.0 2.0 10/22/16 10/22/16 08:31 09:34 Pulse 93 B/P 126/58 Pulse Ox 92 O2 Delivery Nasal Cannula O2 Flow Rate 2.0 Intake and Output 10/21/16 10/21/16 10/22/16 15:00 23:00 07:00 Intake Total 560 ml 0 ml Balance 560 ml 0 ml CHERRY CORTEZ MD Oct 22, 2016 10:33
[2016-10-22 11:00] VITALS: BP 129/68
--- NOTE | 2016-10-22 12:20 | PDOC ---
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 Oriented to time, place and person. PERRL. EOMI. CN: no focal findings. Muscle tone: normal. Muscle strength: 4/5 on left DTR: 2+ Plantar reflex: flexor Gait: not examined in bed. Sensory exam: no abnormal findings. Left dysmetria Review of Relevant I have reviewed the following items javier (where applicable) has been applied. Labs Laboratory Tests Test 10/21/16 03:30 10/21/16 03:35 10/22/16 03:25 Sodium Level 144mmol/L (136-145) 143mmol/L (136-145) Potassium Level 3.9mmol/L (3.5-5.1) 3.8mmol/L (3.5-5.1) Chloride Level 106mmol/L (98-107) 103mmol/L (98-107) Carbon Dioxide Level 30mmol/L (21-32) 28mmol/L (21-32) Anion Gap 8 (6-14) 12 (6-14) Blood Urea Nitrogen 13mg/dL (7-20) 14mg/dL (7-20) Creatinine 1.0mg/dL (0.6-1.0) 0.9mg/dL (0.6-1.0) Estimated GFR (Cockcroft-Gault) 54.2 61.2 BUN/Creatinine Ratio 13 (6-20) 16 (6-20) Glucose Level 106mg/dL (70-99) 118mg/dL (70-99) Calcium Level 8.9mg/dL (8.5-10.1) 9.2mg/dL (8.5-10.1) Total Bilirubin 0.2mg/dL (0.2-1.0) 0.3mg/dL (0.2-1.0) Aspartate Amino Transf (AST/SGOT) 15U/L (15-37) 16U/L (15-37) Alanine Aminotransferase (ALT/SGPT) 19U/L (14-59) 21U/L (14-59) Alkaline Phosphatase 64U/L (46-116) 60U/L (46-116) Total Protein 6.4g/dL (6.4-8.2) 7.0g/dL (6.4-8.2) Albumin 3.2g/dL (3.4-5.0) 3.3g/dL (3.4-5.0) Albumin/Globulin Ratio 1.0 (1.0-1.7) 0.9 (1.0-1.7) White Blood Count 7.6x10^3/uL (4.0-11.0) 9.3x10^3/uL (4.0-11.0) Red Blood Count 4.13x10^6/uL (3.50-5.40) 4.42x10^6/uL (3.50-5.40) Hemoglobin 10.7g/dL (12.0-15.5) 11.4g/dL (12.0-15.5) Hematocrit 33.5% (36.0-47.0) 34.8% (36.0-47.0) Mean Corpuscular Volume 81fL (79-100) 79fL (79-100) Mean Corpuscular Hemoglobin 26pg (25-35) 26pg (25-35) Mean Corpuscular Hemoglobin Concent 32g/dL (31-37) 33g/dL (31-37) Red Cell Distribution Width 14.8% (11.5-14.5) 14.8% (11.5-14.5) Platelet Count 208x10^3/uL (140-400) 226x10^3/uL (140-400) Neutrophils (%) (Auto) 60% (31-73) 67% (31-73) Lymphocytes (%) (Auto) 26% (24-48) 19% (24-48) Monocytes (%) (Auto) 11% (0-9) 11% (0-9) Eosinophils (%) (Auto) 2% (0-3) 2% (0-3) Basophils (%) (Auto) 1% (0-3) 1% (0-3) Neutrophils # (Auto) 4.5x10^3uL (1.8-7.7) 6.3x10^3uL (1.8-7.7) Lymphocytes # (Auto) 1.9x10^3/uL (1.0-4.8) 1.8x10^3/uL (1.0-4.8) Monocytes # (Auto) 0.9x10^3/uL (0.0-1.1) 1.0x10^3/uL (0.0-1.1) Eosinophils # (Auto) 0.2x10^3/uL (0.0-0.7) 0.2x10^3/uL (0.0-0.7) Basophils # (Auto) 0.1x10^3/uL (0.0-0.2) 0.1x10^3/uL (0.0-0.2) Laboratory Tests Test 10/22/16 03:25 White Blood Count 9.3x10^3/uL (4.0-11.0) Red Blood Count 4.42x10^6/uL (3.50-5.40) Hemoglobin 11.4g/dL (12.0-15.5) Hematocrit 34.8% (36.0-47.0) Mean Corpuscular Volume 79fL (79-100) Mean Corpuscular Hemoglobin 26pg (25-35) Mean Corpuscular Hemoglobin Concent 33g/dL (31-37) Red Cell Distribution Width 14.8% (11.5-14.5) Platelet Count 226x10^3/uL (140-400) Neutrophils (%) (Auto) 67% (31-73) Lymphocytes (%) (Auto) 19% (24-48) Monocytes (%) (Auto) 11% (0-9) Eosinophils (%) (Auto) 2% (0-3) Basophils (%) (Auto) 1% (0-3) Neutrophils # (Auto) 6.3x10^3uL (1.8-7.7) Lymphocytes # (Auto) 1.8x10^3/uL (1.0-4.8) Monocytes # (Auto) 1.0x10^3/uL (0.0-1.1) Eosinophils # (Auto) 0.2x10^3/uL (0.0-0.7) Basophils # (Auto) 0.1x10^3/uL (0.0-0.2) Sodium Level 143mmol/L (136-145) Potassium Level 3.8mmol/L (3.5-5.1) Chloride Level 103mmol/L (98-107) Carbon Dioxide Level 28mmol/L (21-32) Anion Gap 12 (6-14) Blood Urea Nitrogen 14mg/dL (7-20) Creatinine 0.9mg/dL (0.6-1.0) Estimated GFR (Cockcroft-Gault) 61.2 BUN/Creatinine Ratio 16 (6-20) Glucose Level 118mg/dL (70-99) Calcium Level 9.2mg/dL (8.5-10.1) Total Bilirubin 0.3mg/dL (0.2-1.0) Aspartate Amino Transf (AST/SGOT) 16U/L (15-37) Alanine Aminotransferase (ALT/SGPT) 21U/L (14-59) Alkaline Phosphatase 60U/L (46-116) Total Protein 7.0g/dL (6.4-8.2) Albumin 3.3g/dL (3.4-5.0) Albumin/Globulin Ratio 0.9 (1.0-1.7) Medications Current Medications Sodium Chloride (Iv Sodium Chloride 0.9% 1000ml Bag) 1,000 ml @ 1,000 mls/hr Q1H IV Last administered on 10/19/16 13:40; Start 10/19/16 at 13:06; Stop 07/25 at 14:05; Status DC Aspirin (Ecotrin) 325 mg 1X ONCE PO Last administered on 10/19/16 13:40; Start 10/19/16 at 13:15; Stop 10/19/16 at 13:16; Status DC Acetaminophen (Tylenol) 650 mg PRN Q6HRS PRN PO MILD PAIN / TEMP; Start at 14:15 Nitroglycerin (Nitrostat) 0.4 mg PRN Q5MIN PRN SL CHEST PAIN; Start 10/19/16 at 18:15 Non-Formulary Medication 1 vial TID NEB ; Start 10/19/16 at 21:00; Stop at 21:00; Status DC Fluticasone Propionate (Flonase) 2 spray DAILY NS ; Start 10/20/16 at 09:00 Non-Formulary Medication 1 puff BID IH ; Start 10/19/16 at 21:00; Stop 10/19/16 at 21:00; Status DC Cetirizine HCl (Zyrtec) 10 mg DAILY PO Last administered on 10/22/16 08:31; Start 10/20/16 at 09:00 Losartan Potassium (Cozaar) 50 mg DAILY PO Last administered on 10/22/16 08:29 ; Start 10/20/16 at 09:00 Atorvastatin Calcium (Lipitor) 10 mg QHS PO Last administered on 10/21/16 20: 47; Start 10/19/16 at 21:00 Verapamil HCl (Calan Sr) 180 mg DAILY PO Last administered on 10/22/16 08:31; Start 10/20/16 at 09:00 Hydrochlorothiazide (Microzide) 12.5 mg DAILY PO Last administered on 08:29; Start 10/20/16 at 09:00 Budesonide (Pulmicort) 0.5 mg RTBID NEB Last administered on 10/22/16 07:30; Start 10/19/16 at 20:00 Albuterol Sulfate (Ventolin Neb Soln) 2.5 mg TID NEB Last administered on 07:30; Start 10/19/16 at 21:00 Clopidogrel Bisulfate 75 mg 75 mg DAILYWBKFT PO Last administered on 10/22/16 08:32; Start 10/20/16 at 08:00 Potassium Chloride/Dextrose/ Sod Cl (KCl 20 Meq In D5W-1/2 NS) 1,000 ml @ 60 mls/hr [id number] PRN IV SEE I/O RECORD; Start 10/20/16 at 13:45; Stop 10/21/16 at 09:19; Status DC Nicotine (Nicoderm Cq 21mg) 1 patch DAILY TD Last administered on 10/22/16 08: 26; Start 10/21/16 at 10:30 Bisacodyl (Dulcolax Tab) 10 mg DAILY PO Last administered on 10/22/16 08:26; Start 10/21/16 at 10:30 Bisacodyl (Dulcolax Supp) 10 mg PRN DAILY PRN [place] CONSTIPATION; Start 10/21/16 at 09:45 Senna/Docusate Sodium (Senna Plus) 1 tab BID PO Last administered on 10/22/16 08:26; Start 10/21/16 at 10:30 Active Scripts Active Reported NITROGLYCERIN SubLingual (Nitroglycerin) 0.4 Mg Tab.subl 0.4 Mg SL PRN Q5MIN PRN Aspirin 81 Mg Tab.chew 1 Tab PO DAILY Flonase Allergy Relief (Fluticasone Propionate) 9.9 Ml [place].susp 2 Sprays NS DAILY Losartan-Hctz 50-12.5 Mg Tab (Losartan/Hydrochlorothiazide) 1 Each Tablet 1 Tab PO DAILY Metoprolol ER-Hctz 50-12.5 mg (Metoprolol Succinate/Hctz) 1 Each Tab.er.24h 1 Each PO Pravastatin Sodium 40 Mg Tablet 1 Tab PO QHS Verapamil Er (Verapamil Hcl) 180 Mg Cap24h.pel 180 Mg PO DAILY Albuterol Sulfate Neb Soln (Albuterol Sulfate) 0.63 Mg/3 Ml Vial.neb 1 Vial NEB TID Flovent 100MCG Diskus (Fluticasone Propionate) 100 Mcg Disk.w.dev 1 Puff IH BID Loratadine 10 Mg Tablet 1 Tab PO DAILY Vitals/I & O Vital Sign - Last 24 Hours 10/21/16 10/21/16 10/21/16 10/21/16 13:34 15:25 17:27 19:00 Temp 98.3 99.0 98.3 99.0 Pulse 86 94 Resp 18 18 B/P 137/59 148/56 Pulse Ox 93 98 93 O2 Delivery Nasal Cannula Nasal Cannula Nasal Cannula Room Air O2 Flow Rate 2.0 2.0 2.0 10/21/16 10/21/16 10/22/16 10/22/16 20:00 23:00 03:00 07:00 Temp 98.0 98.4 97.9 98.0 98.4 97.9 Pulse 89 84 93 Resp 18 20 30 B/P 138/58 144/51 126/58 Pulse Ox 94 96 92 O2 Delivery Nasal Cannula Room Air Room Air Nasal Cannula O2 Flow Rate 2.0 2.0 10/22/16 10/22/16 10/22/16 10/22/16 07:31 08:00 08:29 08:31 Pulse 93 93 B/P 126/58 126/58 Pulse Ox 92 O2 Delivery Nasal Cannula Nasal Cannula O2 Flow Rate 2.0 2.0 10/22/16 09:34 Pulse Ox 92 O2 Delivery Nasal Cannula O2 Flow Rate 2.0 Intake and Output 10/21/16 10/21/16 10/22/16 15:00 23:00 07:00 Intake Total 560 ml 0 ml Balance 560 ml 0 ml SUE HERNANDEZ MD Oct 22, 2016 12:20
--- NOTE | 2016-10-22 22:17 | PDOC ---
Provider Note Provider Note Discharge summary dictated. #[id number] SIMON SUAREZ MD Oct 22, 2016 22:17
--- NOTE | 2016-10-23 04:57 | DS ---
DATE OF DISCHARGE: 10/22/2016 REASON FOR ADMISSION TO THE HOSPITAL: Blurred vision, double vision, and ataxic gait left sided. The patient has a thalamic infarct which is new and has a history of hypertension, coronary artery disease, and small strokes in the past. CONSULTATIONS: Dr. Canela, Dr. Carrizales. PROCEDURES DONE: 1. CT head. 2. MRI of the brain. 3. Carotid Doppler. 4. Echocardiogram. HOSPITAL COURSE: The patient is a 76-year-old female, with history of heart bypass surgery, hypertension, hyperlipidemia, previous strokes, on aspirin, came in with double vision, ataxic gait. CT head initially, right thalamic infarct. MRI which has confirmed subacute infarct of the right thalamic , into the right main brain. There are few small old infarcts in the left parietal lobe. The patient came outside of the therapeutic window. TPA was not given and the patient was seen by Neurology. The patient was placed on Plavix as she failed aspirin and carotid Doppler showed no significant stenosis. Echo has good left ventricular function, no thrombus or intra cardiac shunt. The patient was seen by PT, OT, Speech and Rehab. The patient was transferred to acute inpatient rehab facility. FINAL DIAGNOSES: 1. Ataxia left side and double vision secondary to right thalamic infarct, subacute. 2. 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 3. Coronary artery disease, previous bypass surgery. 4. Hypertension. 5. Hyperlipidemia. DISPOSITION: To inpatient rehab. MEDICATIONS: See MRAD for discharge medications. SIMON SUAREZ MD DR: PEREZ/verito JOB#: [id number] / [id number] WILBUR Saldivar VINAYA MD [facility]
== END 2016-10-22 13:15 | DRG 65 ==
LOC: ER 12:32 → 6 SOUTH 13:54
PROVIDERS: ADMIT Internal Medicine; ATTEND Internal Medicine
DX: I63.9 Cerebral infarction, unspecified (principal); G81.94 Hemiplegia, unspecified affecting left nondominant side; E78.5 Hyperlipidemia, unspecified; F17.200 Nicotine dependence, unspecified, uncomplicated; G47.33 Obstructive sleep apnea (adult) (pediatric); G89.29 Other chronic pain; H50.9 Unspecified strabismus; H51.0 Palsy (spasm) of conjugate gaze; I10 Essential (primary) hypertension; I25.10 Atherosclerotic heart disease of native coronary artery without angina pectoris; I65.22 Occlusion and stenosis of left carotid artery; J44.9 Chronic obstructive pulmonary disease, unspecified; K21.9 Gastro-esophageal reflux disease without esophagitis; K59.00 Constipation, unspecified; M19.90 Unspecified osteoarthritis, unspecified site; M16.12 Unilateral primary osteoarthritis, left hip; Z80.9 Family history of malignant neoplasm, unspecified; Z82.49 Family history of ischemic heart disease and other diseases of the circulatory system; Z83.3 Family history of diabetes mellitus; Z95.1 Presence of aortocoronary bypass graft; Z79.899 Other long term (current) drug therapy; Z79.82 Long term (current) use of aspirin; R27.0 Ataxia, unspecified
CPT/HCPCS: 36415; 70450; 70551; 71010; 80047; 80053; 80061; 81001; 82947; 83735; 84484; 85027; 85610; 85730; 93005; 93306; 93880; 94640; 96360; J7030; 92610; 97110; 97116; 97530; 97535; 99285-25

== ENCOUNTER → 2017-10-08 | Outpatient (CLI) | payer BC, MEDICARE ==
[2017-10-08 09:53] LABS: GFR 48.4
[2017-10-08 09:53] LABS: CREATININE 1.1 mg/dL (0.6-1.0)
[2017-10-08] MEDS: IOHEXOL 300 MG/ML 100ML VIAL. IV ×2 (10:38)
== END | disposition home or self-care (01) ==
LOC: CT 09:04
DX: I65.23 Occlusion and stenosis of bilateral carotid arteries (principal); I72.8 Aneurysm of other specified arteries; J43.8 Other emphysema; I10 Essential (primary) hypertension; Z87.891 Personal history of nicotine dependence
CPT/HCPCS: 36415; 70498; 82565; Q9967

== ENCOUNTER 2017-12-30 05:45 | Inpatient (IN) | payer BC ==
[2017-12-30] MEDS ORDERED: SURGICEL FIBRILLAR 1X2 EACH. (06:04)
[2017-12-30] MEDS ORDERED: PROTAMINE 50 MG/5 ML VIAL. IV (06:04)
[2017-12-30] MEDS: IV RINGERS,LACTATED 1000ML 1,000 ML IV (06:32)
[2017-12-30 06:36] LABS: ADD MAN DIFF? NO
[2017-12-30 06:39] LABS: BASO # 0.1 x10^3/uL (0.0-0.2); BASO % 1 % (0-3); EOS # 0.3 x10^3/uL (0.0-0.7); EOS % 6 % (0-3); HEMATOCRIT 35.3 % (36.0-47.0); HEMOGLOBIN 11.3 g/dL (12.0-15.5); LYMPH # 1.1 x10^3/uL (1.0-4.8); LYMPH % 22 % (24-48); MEAN CORPUSCULAR HEMOGLOBIN 23 pg (25-35); MEAN CORPUSCULAR HGB CONC 32 g/dL (31-37); MEAN CORPUSCULAR VOLUME 73 fL (79-100); MONO # 0.7 x10^3/uL (0.0-1.1); MONO % 14 % (0-9); NEUT # 2.9 x10^3uL (1.8-7.7); NEUT % 58 % (31-73); PLATELET COUNT 229 x10^3/uL (140-400); RED BLOOD COUNT 4.84 x10^6/uL (3.50-5.40); RED CELL DISTRIBUTION WIDTH 15.2 % (11.5-14.5); WHITE BLOOD COUNT 5.1 x10^3/uL (4.0-11.0)
[2017-12-30 06:50] LABS: PARTIAL THROMBOPLASTIN TIME 25 SEC (24-38)
[2017-12-30] MEDS ORDERED: ALBUTEROL SULFATE 2.5 MG/3 ML NEBU. (06:56)
[2017-12-30] MEDS ORDERED: PROCHLORPERAZINE 10 MG/2 ML VIAL. IV (07:00)
[2017-12-30] MEDS ORDERED: LIDOCAINE 1% PF 2 ML VIAL. ID (07:00)
[2017-12-30] MEDS ORDERED: MORPHINE SULFATE 4 MG/ML DISP.SYRIN. IV ×2 (07:00→10:00)
[2017-12-30] MEDS ORDERED: fentaNYL PF VIAL 100 MCG/2 ML VIAL IV ×2 (07:00)
[2017-12-30] MEDS ORDERED: ONDANSETRON PF 4 MG/2 ML VIAL. IV ×2 (07:00→10:00)
[2017-12-30] MEDS ORDERED: MIDAZOLAM HCL/PF 2 MG/2 ML VIAL. (07:03)
[2017-12-30] MEDS ORDERED: BUPIVACAINE 0.5% 50 ML VIAL. (07:04)
[2017-12-30 07:13] LABS: ANION GAP 8 (6-14); BLOOD UREA NITROGEN 16 mg/dL (7-20); CALCIUM 8.2 mg/dL (8.5-10.1); CARBON DIOXIDE 30 mmol/L (21-32); CHLORIDE 105 mmol/L (98-107); GFR 54.1; GLUCOSE 126 mg/dL (70-99); POTASSIUM 3.9 mmol/L (3.5-5.1); SODIUM 143 mmol/L (136-145)
[2017-12-30] MEDS: ALBUTEROL SULFATE 2.5 MG/3 ML NEBU. NEB ×3 (07:25→19:41)
[2017-12-30] MEDS ORDERED: LIDOCAINE 2% PF Vial for OR 5 ML VIAL. ×2 (08:02→09:24)
[2017-12-30] MEDS ORDERED: fentaNYL PF VIAL 100 MCG/2 ML VIAL (08:03)
[2017-12-30] MEDS ORDERED: PROPOFOL 0 ML IV (08:07)
[2017-12-30] MEDS ORDERED: HEPARIN for IV BOLUS 10,000 UNIT/10 ML VIAL. (08:12)
[2017-12-30] MEDS: HEPARIN SODIUM 5,000 UNIT in IV NORMAL SALINE 500ML BAG 500 ML IRR (08:28)
[2017-12-30] MEDS: LIDOCAINE 1% PF 48 ML, SODIUM BICARBONATE VIAL 12 MEQ in TOTAL VOLUME SYRINGE 60 ML ID (08:29)
[2017-12-30] MEDS ORDERED: LABETALOL 20 MG/4 ML DISP.SYRIN. ×2 (08:53→09:19)
[2017-12-30] MEDS ORDERED: hydrALAZINE 20 MG/ML VIAL. (08:53)
[2017-12-30] MEDS: SURGICEL FIBRILLAR 1X2 EACH. (09:13)
[2017-12-30] MEDS ORDERED: NALOXONE 0.4 MG/ML VIAL. IV (10:00)
[2017-12-30] MEDS ORDERED: oxyCODONE IR 5 MG TABLET PO (10:00)
[2017-12-30] MEDS: ASPIRIN 300 MG SUPP.RECT PR (10:31)
[2017-12-30] MEDS: 0.9 % SODIUM CHLORIDE 10 ML DISP.SYRIN. IV (10:31)
[2017-12-30] MEDS: IV NORMAL SALINE 1000ML BAG 1,000 ML IV ×2 (10:32→23:10)
[2017-12-30 11:46] LABS: HEMATOCRIT 35.3 % (36.0-47.0); HEMOGLOBIN 11.3 g/dL (12.0-15.5); MEAN CORPUSCULAR HEMOGLOBIN 23 pg (25-35); MEAN CORPUSCULAR HGB CONC 32 g/dL (31-37); MEAN CORPUSCULAR VOLUME 74 fL (79-100); PLATELET COUNT 214 x10^3/uL (140-400); RED BLOOD COUNT 4.81 x10^6/uL (3.50-5.40); RED CELL DISTRIBUTION WIDTH 15.4 % (11.5-14.5); WHITE BLOOD COUNT 7.4 x10^3/uL (4.0-11.0)
[2017-12-30 11:54] LABS: ANION GAP 6 (6-14); BLOOD UREA NITROGEN 16 mg/dL (7-20); CALCIUM 7.7 mg/dL (8.5-10.1); CARBON DIOXIDE 31 mmol/L (21-32); CHLORIDE 106 mmol/L (98-107); GFR 54.1; GLUCOSE 128 mg/dL (70-99); SODIUM 143 mmol/L (136-145)
[2017-12-30 11:55] LABS: MAGNESIUM 1.9 mg/dL (1.8-2.4)
[2017-12-30] MEDS: METOPROLOL TARTRATE 5 MG/5 ML VIAL. IVP ×2 (12:00→18:25)
[2017-12-30] MEDS: HYDROcodone/APAP 5/325MG 1 TAB TABLET PO (12:27)
[2017-12-30] MEDS: ACETAMINOPHEN 325 MG TABLET. PO (13:36)
[2017-12-30] MEDS ORDERED: NITROGLYCERIN SUBLINGUAL 0.4 MG BOTTLE OF 25. SL (14:15)
[2017-12-30] MEDS ORDERED: NON FORMULARY ITEM (Albuterol Sulfate (Albuterol Sulfate Neb Soln) 1 VIAL) NEB (14:15)
[2017-12-30] MEDS ORDERED: FLUTICASONE 50MCG/NASAL SPRAY 16GM BOTTLE. NS (15:00)
[2017-12-30] MEDS: PANTOPRAZOLE 40 MG TABLET.DR. PO (15:51)
[2017-12-30] MEDS: SERTRALINE 25 MG TABLET. PO (15:51)
[2017-12-30] MEDS: LOSARTAN POTASSIUM 50 MG TABLET. PO (15:52)
[2017-12-30] MEDS: GABAPENTIN 300 MG CAPSULE. PO (20:40)
[2017-12-30] MEDS: CETIRIZINE HCL 10 MG TABLET. PO (20:40)
[2017-12-30] MEDS: ATORVASTATIN CALCIUM 10 MG TABLET. PO (20:40)
[2017-12-30] MEDS: VERAPAMIL SR 180 MG TABLET.ER. PO (20:45)
[2017-12-30 21:25] LABS: POC GLUCOSE 125 mg/dL (70-99)
[2017-12-30] MEDS ORDERED: cloNIDine HCL 0.1 MG TABLET PO (22:30)
[2017-12-31] MEDS ORDERED: ELECTROLYTE (NON-ICU) PROTOCOL MC (06:00)
[2017-12-31 06:35] LABS: ADD MAN DIFF? NO
[2017-12-31 06:43] LABS: BASO % 0 % (0-3); EOS # 0.2 x10^3/uL (0.0-0.7); EOS % 2 % (0-3); HEMATOCRIT 33.9 % (36.0-47.0); HEMOGLOBIN 10.8 g/dL (12.0-15.5); LYMPH # 0.8 x10^3/uL (1.0-4.8); LYMPH % 10 % (24-48); MEAN CORPUSCULAR HEMOGLOBIN 24 pg (25-35); MEAN CORPUSCULAR HGB CONC 32 g/dL (31-37); MEAN CORPUSCULAR VOLUME 74 fL (79-100); MONO # 0.9 x10^3/uL (0.0-1.1); MONO % 10 % (0-9); NEUT % 78 % (31-73); PLATELET COUNT 230 x10^3/uL (140-400); RED BLOOD COUNT 4.59 x10^6/uL (3.50-5.40); RED CELL DISTRIBUTION WIDTH 15.1 % (11.5-14.5); WHITE BLOOD COUNT 8.9 x10^3/uL (4.0-11.0)
[2017-12-31 07:20] LABS: ALBUMIN/GLOBULIN RATIO 0.8 (1.0-1.7); ALK PHOS 68 U/L (46-116); ANION GAP 9 (6-14); AST (SGOT) 17 U/L (15-37); BLOOD UREA NITROGEN 18 mg/dL (7-20); BUN/CREATININE RATIO 20 (6-20); CALCIUM 7.9 mg/dL (8.5-10.1); CARBON DIOXIDE 27 mmol/L (21-32); CHLORIDE 103 mmol/L (98-107); CREATININE 0.9 mg/dL (0.6-1.0); GLUCOSE 124 mg/dL (70-99); POTASSIUM 4.6 mmol/L (3.5-5.1); SODIUM 139 mmol/L (136-145); TOTAL BILIRUBIN 0.4 mg/dL (0.2-1.0); TOTAL PROTEIN 6.7 g/dL (6.4-8.2)
[2017-12-31 08:09] LABS: ALT (SGPT) 16 U/L (14-59)
[2017-12-31] MEDS: ALBUTEROL SULFATE 2.5 MG/3 ML NEBU. NEB ×4 (08:15→19:37)
[2017-12-31] MEDS: BUDESONIDE 0.5 MG/2 ML NEBU. NEB ×2 (08:15→19:37)
[2017-12-31 08:45] LABS: POC GLUCOSE 131 mg/dL (70-99)
[2017-12-31] MEDS ORDERED: NON FORMULARY ITEM (Budesonide/Formoterol Fumarate (Symbicort 80-4.5 Mcg Inhaler) 2 PUFF) IH (09:00)
[2017-12-31 11:33] LABS: POC GLUCOSE 110 mg/dL (70-99)
[2017-12-31] MEDS: CLOPIDOGREL BISULFATE 75 MG TABLET PO (12:01)
[2017-12-31] MEDS: PANTOPRAZOLE 40 MG TABLET.DR. PO (12:02)
[2017-12-31] MEDS: ENOXAPARIN 40 MG/0.4 ML SYRINGE. SQ (12:02)
[2017-12-31] MEDS: LOSARTAN POTASSIUM 50 MG TABLET. PO (12:02)
[2017-12-31] MEDS: SERTRALINE 25 MG TABLET. PO (12:02)
[2017-12-31] MEDS: ASPIRIN CHEWABLE 81 MG TABLET. PO (12:02)
[2017-12-31] MEDS: IV NORMAL SALINE 1000ML BAG 1,000 ML IV (12:30)
[2017-12-31] MEDS: methylPREDNISolone SOD SUCC PF 125 MG/2 ML VIAL. IV ×2 (16:22→21:55)
[2017-12-31 16:45] LABS: POC GLUCOSE 116 mg/dL (70-99)
[2017-12-31 19:11] LABS: BASE EXCESS ABG 3 mmol/L (-3-3); HCO3 ABG 31 mmol/L (21-28); PO2 ABG 59 mmHg (65-108); SAT O2 ABG 89 % (92-99)
[2017-12-31] MEDS: AMINO AC 3%/ELECTROLYTE/GLYCER 1,000 ML IV (19:48)
[2017-12-31] MEDS: METOPROLOL TARTRATE 5 MG/5 ML VIAL. IVP (20:43)
[2017-12-31 21:01] LABS: POC GLUCOSE 150 mg/dL (70-99)
[2017-12-31 21:24] LABS: PCO2 ABG 64 mmHg (35-46)
[2017-12-31] MEDS: ATORVASTATIN CALCIUM 10 MG TABLET. PO (21:54)
[2017-12-31] MEDS: CETIRIZINE HCL 10 MG TABLET. PO (21:54)
[2017-12-31] MEDS: VERAPAMIL SR 180 MG TABLET.ER. PO (21:55)
[2017-12-31] MEDS: GABAPENTIN 300 MG CAPSULE. PO (21:55)
[2017-12-31] MEDS ORDERED: methylPREDNISolone SOD SUCC PF 125 MG/2 ML VIAL. IV (22:00)
[2017-12-31 23:15] LABS: AMPHETAMINE/METHAMPHETAMINE NEG (NEG); BARBITURATES NEG (NEG); BENZODIAZEPINES POS (NEG); CANNABINOIDS NEG (NEG); COCAINE NEG (NEG); ETHANOL, URINE NEG (NEG); METHADONE NEG (NEG); OPIATES NEG (NEG); PHENCYCLIDINE NEG (NEG)
[2018-01-01 01:18] LABS: VITAMIN-B12 331 pg/mL (247-911)
[2018-01-01] MEDS: methylPREDNISolone SOD SUCC PF 125 MG/2 ML VIAL. IV ×2 (06:10→13:50)
[2018-01-01 07:41] LABS: POC GLUCOSE 173 mg/dL (70-99)
[2018-01-01] MEDS: ALBUTEROL SULFATE 2.5 MG/3 ML NEBU. NEB ×4 (07:57→19:32)
[2018-01-01] MEDS: BUDESONIDE 0.5 MG/2 ML NEBU. NEB ×2 (07:57→19:32)
[2018-01-01] MEDS: SERTRALINE 25 MG TABLET. PO (09:00)
[2018-01-01] MEDS: AMINO AC 3%/ELECTROLYTE/GLYCER 1,000 ML IV (09:18)
[2018-01-01] MEDS: ENOXAPARIN 40 MG/0.4 ML SYRINGE. SQ (09:19)
[2018-01-01] MEDS: NALOXONE 0.4 MG/ML VIAL. IV (10:25)
[2018-01-01 11:11] LABS: BASE EXCESS ABG 2 mmol/L (-3-3); HCO3 ABG 30 mmol/L (21-28); PH ABG 7.29 (7.35-7.45); PO2 ABG 67 mmHg (65-108); SAT O2 ABG 91 % (92-99)
[2018-01-01 11:14] LABS: FIO2 ABG 35; PCO2 ABG 63 mmHg (35-46)
[2018-01-01 11:22] LABS: POC GLUCOSE 174 mg/dL (70-99)
[2018-01-01 11:41] LABS: BASO % 0 % (0-3); EOS % 0 % (0-3); HEMATOCRIT 34.6 % (36.0-47.0); HEMOGLOBIN 10.9 g/dL (12.0-15.5); LYMPH # 0.4 x10^3/uL (1.0-4.8); LYMPH % 4 % (24-48); MEAN CORPUSCULAR HEMOGLOBIN 23 pg (25-35); MEAN CORPUSCULAR HGB CONC 32 g/dL (31-37); MEAN CORPUSCULAR VOLUME 74 fL (79-100); MONO # 0.2 x10^3/uL (0.0-1.1); MONO % 2 % (0-9); NEUT # 8.2 x10^3uL (1.8-7.7); NEUT % 94 % (31-73); PLATELET COUNT 215 x10^3/uL (140-400); RED BLOOD COUNT 4.69 x10^6/uL (3.50-5.40); RED CELL DISTRIBUTION WIDTH 15.4 % (11.5-14.5); WHITE BLOOD COUNT 8.7 x10^3/uL (4.0-11.0)
[2018-01-01 11:43] LABS: ADD MAN DIFF? YES
[2018-01-01 11:56] LABS: ANION GAP 5 (6-14); BLOOD UREA NITROGEN 31 mg/dL (7-20); CALCIUM 8.8 mg/dL (8.5-10.1); CARBON DIOXIDE 33 mmol/L (21-32); CHLORIDE 101 mmol/L (98-107); CREATININE 1.1 mg/dL (0.6-1.0); GFR 48.4; GLUCOSE 170 mg/dL (70-99); POTASSIUM 4.7 mmol/L (3.5-5.1); SODIUM 139 mmol/L (136-145)
[2018-01-01 13:12] LABS: % BANDS 1 % (0-9); % LYMPHS 7 % (24-48); % MONOS 1 % (0-10); % SEGS 91 % (35-66); ANISOCYTOSIS SLIGHT; PLT ESTIMATE ADEQUATE (ADEQUATE)
[2018-01-01 13:13] LABS: HYPOCHROMIA PRESENT; MICROCYTOSIS PRESENT; OVALOCYTES FEW; POIKILOCYTOSIS PRESENT
[2018-01-01] MEDS: CLOPIDOGREL BISULFATE 75 MG TABLET PO (13:49)
[2018-01-01] MEDS: ASPIRIN CHEWABLE 81 MG TABLET. PO (13:49)
[2018-01-01] MEDS: PANTOPRAZOLE 40 MG TABLET.DR. PO (13:49)
[2018-01-01] MEDS: LOSARTAN POTASSIUM 50 MG TABLET. PO (13:51)
[2018-01-01 16:28] LABS: BASE EXCESS ABG -1 mmol/L (-3-3); HCO3 ABG 26 mmol/L (21-28); PCO2 ABG 56 mmHg (35-46); PH ABG 7.29 (7.35-7.45); PO2 ABG 60 mmHg (65-108); SAT O2 ABG 88 % (92-99)
[2018-01-01 16:34] LABS: FIO2 ABG 32
[2018-01-01 16:55] LABS: POC GLUCOSE 271 mg/dL (70-99)
[2018-01-01 17:11] LABS: BILIRUBIN,URINE NEGATIVE (NEG); CLARITY,URINE CLEAR; COLOR,URINE YELLOW; GLUCOSE,URINE NEGATIVE (NEG); NITRITE,URINE NEGATIVE (NEG); PH,URINE 5.5; PROTEIN,URINE NEGATIVE (NEG-TRACE); UROBILINOGEN,URINE 0.2 mg/dL (0.2 mg/dL)
[2018-01-01 17:21] LABS: AMORPHOUS SEDIMENT,UR PRESENT /HPF; BACTERIA,URINE 0 /HPF (0-FEW); RBC,URINE 0 /HPF (0-2); SQUAMOUS EPITHELIAL CELL,UR OCC /LPF; WBC,URINE OCC /HPF (0-4)
[2018-01-01] MEDS ORDERED: DEXTROSE 50% 25 GM / 50ML DISP.SYRIN. IV (17:45)
[2018-01-01] MEDS: INSULIN LISPRO 300 UNITS/3 ML INSULN.PEN. SQ (18:13)
[2018-01-01 20:11] LABS: POC GLUCOSE 280 mg/dL (70-99)
[2018-01-01] MEDS: ATORVASTATIN CALCIUM 10 MG TABLET. PO (20:52)
[2018-01-01] MEDS: VERAPAMIL SR 180 MG TABLET.ER. PO (20:55)
[2018-01-02 03:51] LABS: ADD MAN DIFF? NO
[2018-01-02 03:53] LABS: BASO % 0 % (0-3); EOS % 0 % (0-3); HEMATOCRIT 31.4 % (36.0-47.0); HEMOGLOBIN 9.9 g/dL (12.0-15.5); LYMPH # 0.4 x10^3/uL (1.0-4.8); LYMPH % 3 % (24-48); MEAN CORPUSCULAR HEMOGLOBIN 23 pg (25-35); MEAN CORPUSCULAR HGB CONC 32 g/dL (31-37); MEAN CORPUSCULAR VOLUME 74 fL (79-100); MONO # 1.1 x10^3/uL (0.0-1.1); MONO % 9 % (0-9); NEUT # 11.2 x10^3uL (1.8-7.7); NEUT % 88 % (31-73); PLATELET COUNT 215 x10^3/uL (140-400); RED BLOOD COUNT 4.27 x10^6/uL (3.50-5.40); RED CELL DISTRIBUTION WIDTH 15.3 % (11.5-14.5); WHITE BLOOD COUNT 12.7 x10^3/uL (4.0-11.0)
[2018-01-02 04:06] LABS: ANION GAP 4 (6-14); BLOOD UREA NITROGEN 46 mg/dL (7-20); CALCIUM 8.9 mg/dL (8.5-10.1); CARBON DIOXIDE 32 mmol/L (21-32); CHLORIDE 104 mmol/L (98-107); CREATININE 1.4 mg/dL (0.6-1.0); GFR 36.7; GLUCOSE 218 mg/dL (70-99); POTASSIUM 4.6 mmol/L (3.5-5.1); SODIUM 140 mmol/L (136-145)
[2018-01-02] MEDS: IV NORMAL SALINE 1000ML BAG 1,000 ML IV ×2 (05:26→06:29)
[2018-01-02] MEDS: BUDESONIDE 0.5 MG/2 ML NEBU. NEB ×2 (07:52→20:18)
[2018-01-02] MEDS: ALBUTEROL SULFATE 2.5 MG/3 ML NEBU. NEB ×4 (07:52→20:18)
[2018-01-02] MEDS: INSULIN LISPRO 300 UNITS/3 ML INSULN.PEN. SQ ×3 (08:00→17:00)
[2018-01-02] MEDS ORDERED: INSULIN LISPRO 300 UNITS/3 ML INSULN.PEN. SQ (08:00)
[2018-01-02 08:10] LABS: POC GLUCOSE 184 mg/dL (70-99)
[2018-01-02] MEDS: PANTOPRAZOLE 40 MG TABLET.DR. PO (08:21)
[2018-01-02] MEDS: CLOPIDOGREL BISULFATE 75 MG TABLET PO (08:21)
[2018-01-02] MEDS: ENOXAPARIN 40 MG/0.4 ML SYRINGE. SQ (08:22)
[2018-01-02] MEDS: ASPIRIN CHEWABLE 81 MG TABLET. PO (08:22)
[2018-01-02] MEDS: predniSONE 20 MG TABLET PO (08:27)
[2018-01-02] MEDS: LOSARTAN POTASSIUM 50 MG TABLET. PO (09:00)
[2018-01-02 11:36] LABS: POC GLUCOSE 227 mg/dL (70-99)
[2018-01-02 20:50] LABS: POC GLUCOSE 238 mg/dL (70-99)
[2018-01-02] MEDS: ACETAMINOPHEN 325 MG TABLET. PO (20:58)
[2018-01-02] MEDS: VERAPAMIL SR 180 MG TABLET.ER. PO (20:58)
[2018-01-02] MEDS: ATORVASTATIN CALCIUM 10 MG TABLET. PO (20:58)
[2018-01-03 05:21] LABS: CHOLESTEROL 143 mg/dL (0-200); HDLC 50 mg/dL (40-60); LDLC 72 mg/dL (0-100); NON-HDL CHOLESTEROL 93 mg/dL (0-129); TRIGLYCERIDES 105 mg/dL (0-150); VLDLC 21 mg/dL (0-40)
[2018-01-03 05:22] LABS: CHOLESTEROL/HDL RATIO 2.9
[2018-01-03] MEDS: PANTOPRAZOLE 40 MG TABLET.DR. PO ×2 (07:30→08:41)
[2018-01-03] MEDS: BUDESONIDE 0.5 MG/2 ML NEBU. NEB ×2 (07:57→19:18)
[2018-01-03] MEDS: ALBUTEROL SULFATE 2.5 MG/3 ML NEBU. NEB ×4 (07:57→19:18)
[2018-01-03] MEDS: INSULIN LISPRO 300 UNITS/3 ML INSULN.PEN. SQ ×3 (08:00→17:27)
[2018-01-03 08:39] LABS: POC GLUCOSE 120 mg/dL (70-99)
[2018-01-03] MEDS: ASPIRIN CHEWABLE 81 MG TABLET. PO (08:39)
[2018-01-03] MEDS: CLOPIDOGREL BISULFATE 75 MG TABLET PO (08:39)
[2018-01-03] MEDS: ENOXAPARIN 40 MG/0.4 ML SYRINGE. SQ (08:40)
[2018-01-03] MEDS: predniSONE 10 MG TABLET PO (08:40)
[2018-01-03] MEDS: LOSARTAN POTASSIUM 50 MG TABLET. PO (08:41)
[2018-01-03 11:56] LABS: POC GLUCOSE 186 mg/dL (70-99)
[2018-01-03] MEDS: PHENAZOPYRIDINE 200 MG TABLET. PO ×2 (14:54→20:53)
[2018-01-03] MEDS: ACETAMINOPHEN 325 MG TABLET. PO ×2 (16:28→20:03)
[2018-01-03 16:33] LABS: POC GLUCOSE 159 mg/dL (70-99)
[2018-01-03] MEDS: ATORVASTATIN CALCIUM 10 MG TABLET. PO (20:53)
[2018-01-03] MEDS: VERAPAMIL SR 180 MG TABLET.ER. PO (20:53)
[2018-01-03 21:03] LABS: POC GLUCOSE 171 mg/dL (70-99)
[2018-01-04] MEDS: ALBUTEROL SULFATE 2.5 MG/3 ML NEBU. NEB ×3 (07:19→16:42)
[2018-01-04] MEDS: BUDESONIDE 0.5 MG/2 ML NEBU. NEB (07:19)
[2018-01-04] MEDS: INSULIN LISPRO 300 UNITS/3 ML INSULN.PEN. SQ ×3 (08:00→16:54)
[2018-01-04] MEDS: ASPIRIN CHEWABLE 81 MG TABLET. PO (08:25)
[2018-01-04] MEDS: PANTOPRAZOLE 40 MG TABLET.DR. PO (08:25)
[2018-01-04] MEDS: CLOPIDOGREL BISULFATE 75 MG TABLET PO (08:25)
[2018-01-04] MEDS: PHENAZOPYRIDINE 200 MG TABLET. PO ×2 (08:26→13:56)
[2018-01-04] MEDS: LOSARTAN POTASSIUM 50 MG TABLET. PO (08:26)
[2018-01-04 08:27] LABS: POC GLUCOSE 89 mg/dL (70-99)
[2018-01-04] MEDS: ENOXAPARIN 40 MG/0.4 ML SYRINGE. SQ (08:27)
[2018-01-04 11:16] LABS: POC GLUCOSE 107 mg/dL (70-99)
[2018-01-04 16:55] LABS: POC GLUCOSE 149 mg/dL (70-99)
[2018-01-04] MEDS ORDERED: MONTELUKAST SODIUM 10 MG TABLET. PO (21:00)
== END 2018-01-04 17:55 | disposition home health service (06) | DRG 37 ==
LOC: OPSVCIP 05:45 → 2 NORTH 12:10
PROC: 03CN0ZZ Extirpation of Matter from Left External Carotid Artery, Open Approach (ICD-10-PCS; principal; 2017-12-30 07:30)
PROC: 03CJ0Z6 (ICD-10-PCS; 2017-12-30 07:30)
PROC: 03CL0ZZ Extirpation of Matter from Left Internal Carotid Artery, Open Approach (ICD-10-PCS; 2017-12-30 07:30)
PROC: 5A09357 Assistance with Respiratory Ventilation, Less than 24 Consecutive Hours, Continuous Positive Airway Pressure (ICD-10-PCS; 2017-12-30 07:56)
PROC: 5A09357 Assistance with Respiratory Ventilation, Less than 24 Consecutive Hours, Continuous Positive Airway Pressure (ICD-10-PCS; 2017-12-30 07:56)
PROC: 5A09357 Assistance with Respiratory Ventilation, Less than 24 Consecutive Hours, Continuous Positive Airway Pressure (ICD-10-PCS; 2017-12-30 07:56)
DX: I65.22 Occlusion and stenosis of left carotid artery (principal); G93.41 Metabolic encephalopathy; J96.21 Acute and chronic respiratory failure with hypoxia; I63.9 Cerebral infarction, unspecified; J96.22 Acute and chronic respiratory failure with hypercapnia; I69.354 Hemiplegia and hemiparesis following cerebral infarction affecting left non-dominant side; E11.51 Type 2 diabetes mellitus with diabetic peripheral angiopathy without gangrene; E66.9 Obesity, unspecified; E78.5 Hyperlipidemia, unspecified; I10 Essential (primary) hypertension; I25.10 Atherosclerotic heart disease of native coronary artery without angina pectoris; J44.9 Chronic obstructive pulmonary disease, unspecified; K21.9 Gastro-esophageal reflux disease without esophagitis; N39.3 Stress incontinence (female) (male); N89.5 Stricture and atresia of vagina; M19.90 Unspecified osteoarthritis, unspecified site; Z79.02 Long term (current) use of antithrombotics/antiplatelets; Z79.82 Long term (current) use of aspirin; Z82.49 Family history of ischemic heart disease and other diseases of the circulatory system; Z83.3 Family history of diabetes mellitus; Z87.891 Personal history of nicotine dependence; Z90.710 Acquired absence of both cervix and uterus; Z95.1 Presence of aortocoronary bypass graft; Z99.81 Dependence on supplemental oxygen; Z79.899 Other long term (current) drug therapy; Z88.8 Allergy status to other drugs, medicaments and biological substances; R33.9 Retention of urine, unspecified
CPT/HCPCS: 36415; 36600; 70450; 70551; 71045; 71046; 80048; 80053; 80061; 80307; 81001; 82607; 82805; 82962; 83735; 84443; 85007; 85025; 85027; 85610; 85730; 93005; 94618; 94640; 94660; 94760; 95816; 97116-GP; 97162-GP; 97166-GO; 97530-GP; C8929; J0360; J0690; J1644; J1650; J1815; J2060; J2250; J2310; J2704; J2930; J3010; J3490; J7030; J7040; J7120; J7512; J7613; J7626